=== PATIENT | female | born 1990 | race Caucasian/White ===

== ENCOUNTER 2023-09-02 06:15 | Emergency (ER) | payer OTHER, SELFPAY ==
[2023-09-02 06:20] VITALS: BP 128/83; PULSE 69; RESP 16; TEMP 36.9; O2SAT 99; BMI 21.9
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
== END 2023-09-02 07:09 | disposition home or self-care (01) ==
PROVIDERS: Emergency Provider Family Medicine; PCP Internal Medicine
DX: S61.412A Laceration without foreign body of left hand, initial encounter (principal); W26.0XXA Contact with knife, initial encounter
CPT/HCPCS: 12001; 99283; 99284

== ENCOUNTER 2023-09-06 05:35 | Emergency (ER) | payer OTHER, SELFPAY ==
[2023-09-06 05:43] VITALS: BP 116/84; PULSE 62; RESP 18; TEMP 36.7; O2SAT 99; BMI 22.2
--- NOTE | 2023-09-06 06:08 | CRLHL7_ITS ---
For Patients: As a result of the Century Cures Act, medical imaging exams and procedure reports are released immediately into your electronic medical record. You may view this report before your referring provider. If you have questions, please contact your health care provider. Indication: Vaginal bleeding and pelvic cramping in the setting of . Technique: Endovaginal pelvic ultrasound. Comparison: None Findings: No intrauterine gestational sac. No adnexal finding suspicious for ectopic . Endometrial stripe thickness is 23 mm. Incidental oval circumscribed homogeneous hypoechoic finding in the anterior aspect of the lower uterine segment consistent with a fibroid measuring 2.1 cm in greatest dimension. 2.7 cm right ovarian cyst with low-level internal echoes. Normal left ovary. Small volume anechoic recto uterine pelvic ascites. Impression: of unknown location. No sonographic findings of ectopic are demonstrated. OB consultation and follow-up serum beta HCG and pelvic ultrasound are recommended. Dictated by Paul Gasca MD @ 09/06/2023 7:12:24 AM (Electronically Signed)
--- NOTE | 2023-09-06 06:11 | ED.GENADULT ---
HPI - General Adult General Chief complaint: OB/Uterine Contractions Stated complaint: 9wks , possible miscarriage Time Seen by Provider: 09/06/23 05:46 Source: patient and family Mode of arrival: ambulatory Limitations: no limitations History of Present Illness HPI narrative: 33-year-old female presents the emergency department for evaluation of vaginal bleeding, 9 weeks . Has not yet had her 1st OB appointment, does not know her blood type. 1st . No use of anticoagulants. Does have a history of autoimmune disease with Crohn's disease, reports Remicade infusions, last 1 was last month. No fevers, no trauma or injury. Bleeding started a few hours ago. Has not fully soaked through 1 pad in the last 4 hours. Notes significant cramping. No dysuria. Nausea. Has not tried taking any medication to help with her symptoms. Past medical history notable for Crohn's disease. Only home medication is Remicade infusions. Denies prior abdominal surgeries. ROS notable for the vaginal bleeding as above, otherwise denies times 12 systems. Related Data Home Medications Medication Instructions Recorded Confirmed infliximab 100 mg intravenous 100 mg IV DIRECTED 09/06/23 09/06/23 solution (Remicade) Allergies Allergy/AdvReac Type Severity Reaction Status Date / Time No Known Drug Allergies Allergy Verified 09/06/23 05:46 [facility] Medical History History of abnormal cervical Pap smear ?Z87.42 - Personal history of other diseases of the female genital tract (ICD-10) Crohn's disease ?K50.90 - Crohn's disease, unspecified, without complications (ICD-10) Surgical History History of open reduction and internal fixation (ORIF) procedure (2005) ?Z98.890 - Other specified postprocedural states (ICD-10) History of mandibular surgery (07/18/08) ?Z98.890 - Other specified postprocedural states (ICD-10) Family History Paternal Grandfather Colon cancer Prostate cancer Maternal Grandmother Breast cancer Diabetes Paternal Grandmother Diabetes Social History Smoking Status: Never smoker Do you use any of these nicotine containing products: None How often do you have a drink containing alcohol: never AUDIT-C Alcohol total score: 0 Non-prescribed substance use: denies use Exam Const: Vital Signs, click to edit/add: Vital Signs - 24 hr 09/06/23 05:43 09/06/23 06:29 09/06/23 07:00 Temperature 98.1 F 98.1 F 98.1 F Pulse Rate [Right Pulse Oximeter] 62 Respiratory Rate 18 Blood Pressure [Ri ght Upper Arm] 116/84 Pulse Oximetry 99 Oxygen Delivery Me thod Room Air 09/06/23 07:01 Temperature 98.1 F Pulse Rate [Right Pulse Oximeter] Respiratory Rate Blood Pressure [Ri ght Upper Arm] Pulse Oximetry Oxygen Delivery Me thod Documenting provider has reviewed patient's vital signs: yes Common normals: no apparent distress General appearance: well kempt Other: Restless, writhing in pain. Gets up frequently to go to the bathroom. HENMT: Common normals: normocephalic Head and scalp: normocephalic Face and sinus: normal facial exam Eye: Common normals: conjunctivae normal General eye: normal appearance of both eyes Conjunctiva: conjunctiva(e) normal Neck & C-Spine: Common normals: full ROM and no lymphadenopathy Resp: Common normals: normal respiratory effort, no use of accessory muscles and clear to auscultation bilaterally Effort & inspection: able to speak in complete sentences Auscultation: clear to auscultation bilaterally Cardio: Common normals: regular rate, regular rhythm, S1 normal heart sound, S2 normal heart sound and no murmurs Rate: regular rate Rhythm: regular rhythm Heart sounds: S1 normal and S2 normal GI: Common normals: Normal to inspection, nondistended, normoactive bowel sounds present, soft to palpation, non-tender, no hepatosplenomegaly and no masses Palpation: soft and no hepatosplenomegaly : Other: Pelvic exam with normal appearing external genitals. Dark red blood present in vaginal vault. No obvious tissue. Speculum exam showing closed cervix with mild, light bleeding. Bimanual exam shows uterus enlarged, consistent with reported gestational age. Diffusely tender with no obvious deformities, abnormalities or focal tenderness. Extremity: Common normals: normal to inspection Neuro: Speech: speech normal Gait (neuro): normal gait Motor exam: strength 5/5 throughout Psych: Appearance: well kempt Attitude: engaged Other: A little anxious, requires redirection but no signs of impairment. Judgment and insight seem intact Skin: Common normals: no rashes or lesions noted General skin exam: no rashes or lesions noted Course Course ED Course: Threatened miscarriage. I did attempt with bedside ultrasound that she had just drained her bladder and I am unable to locate a gestational sac or the uterus at all. Small-bowel obscuring. Formal pelvic ultrasound ordered, as staff will be and about a 1/2 hour. Recommend basic blood work, ABO and Rh type, CBC, hCG quant. No signs of severe hemorrhage. Vitals stable. Will give 4 mg of IV Zofran, Tylenol. Discussed NSAID safety in , do not recommend. We can move up the oxycodone if needed but will likely cause worse nausea. Recommend starting with Tylenol and Zofran 1st. She was agreeable to this while we await findings. Reevaluation(s) Time of Reevaluation #1: 07:26 Reevaluation #1: Pain markedly improved with Zofran and Tylenol. Was given Toradol once I had reviewed the ultrasound finding showing no evidence of intrauterine . This is also helping. We discussed the findings, no evidence of intrauterine , suspect spontaneous miscarriage, seems uncomplicated. No evidence of ectopic . HCG quant is around 7000. Discussed how this is not diagnostic but will rather be used for follow-up purposes. Alarm symptoms reviewed, written instructions provided, all questions answered. Verbalizes understanding and agreement. Work note given for today. Vital Signs Vital signs: Initial Vital Signs Temperature 98.1 F 09/06/23 05:43 Temperature Source Temporal Artery Scan 09/06/23 05:43 Pulse Rate 62 09/06/23 05:43 Respiratory Rate 18 09/06/23 05:43 Blood Pressure 116/84 09/06/23 05:43 Blood Pressure Mean 94 09/06/23 05:43 Blood Pressure Position Sitting 09/06/23 05:43 Pulse Oximetry 99 09/06/23 05:43 Oxygen Delivery Method Room Air 09/06/23 05:43 Vital Signs Temperature 98.1 F 09/06/23 05:43 Pulse Rate 62 09/06/23 05:43 Respiratory Rate 18 09/06/23 05:43 Blood Pressure 116/84 09/06/23 05:43 Pulse Oximetry 99 09/06/23 05:43 Oxygen Delivery Method Room Air 09/06/23 05:43 Temperature 98.1 F 09/06/23 07:01 Pulse Rate 62 09/06/23 05:43 Respiratory Rate 18 09/06/23 05:43 Blood Pressure 116/84 09/06/23 05:43 Pulse Oximetry 99 09/06/23 05:43 Oxygen Delivery Method Room Air 09/06/23 05:43 Medical Decision Making Lab Data Lab results reviewed: Yes I reviewed the patient's lab results Lab results narrative: Mildly elevated white count, A positive blood type, quant of 7000. Labs: Lab Results 09/06/23 Range/Units 06:15 WBC 13.32 H (4.50-11.00) K/uL RBC 4.93 (4.00-5.20) m/uL Hgb 13.4 (12.0-16.0) gm/dL Hct 41.7 (33.0-51.0) % MCV 85 (80-100) fL MCH 27 (26-34) pg MCHC 32 (32-36) gm/dL RDW Coeff of Tabitha 13.4 (11.5-15.5) % Plt Count 320 (140-440) K/uL Neut % (Auto) 71.5 (42.0-72.0) % Lymph % (Auto) 22.4 (20-44) % [place] % (Auto) 4.3 (0.0-11.0) % Eos % (Auto) 0.8 (0.0-7.0) % Baso % (Auto) 0.2 (0.0-3.0) % Neut # (Auto) 9.50 H (1.7-7.0) K/uL Lymph # (Auto) 3.00 H (0.90-2.90) K/uL [place] # (Auto) 0.60 (0.00-0.90) K/UL Eos # (Auto) 0.10 (0.00-0.50) K/uL Baso # (Auto) 0.00 (0.00-0.30) K/uL Abs Immat Gran (auto) 0.10 (0.00-0.30) K/uL Imm/Tot Granulo (auto) 0.8 % HCG, Quant 6994.00 mIU/mL Blood Type A Positive Imaging Data Pelvic ultrasound: Attestation: I have reviewed the pertinent imaging results. My impression: No intrauterine , small fibroid present Radiologist's impression: Impression: of unknown location. No sonographic findings of ectopic are demonstrated. OB consultation and follow-up serum beta HCG and pelvic ultrasound are recommended. Discharge Plan Discharge Clinical Impression: Spontaneous miscarriage Patient Disposition: Home w/ Parent or Adult Condition: Stable Instructions: Miscarriage (ED) Additional Instructions: As we discussed, you are unfortunately experiencing a miscarriage. Thankfully, things do seem to be progressing naturally and without complication. Your blood type is A positive, this means that you do not need any special injections or care related to your blood type in this . Your hormone level is around 7000. This will need to be rechecked in the OB office in a few days to ensure that things are progressing as expected. Please call the office to update them on how things are going today and double check on when they would want you to be seen for your next appointment, it will likely be Saturday or Saturday. I have given her prescriptions for Zofran, also known as ondansetron which is an anti nausea medication. He may take this 1 tablet up to 3 times daily for nausea and vomiting. I have also given her prescription for Toradol which is an anti-inflammatory medicine similar to ibuprofen. You may take this up to 4 times daily, every 6 hours for pain. You may also use Tylenol 1000 mg every 6 hours if the Toradol is not strong enough. I do not recommend also using ibuprofen or Aleve while you are taking the Toradol. For most people the bleeding is strong umberto for 24 hours and then starts to let up, more similar to normal menstrual cycle. As we discussed, I would like for you to come back to the emergency department if you start having heavy bleeding, meaning soaking through more than a pad per hour, have high fevers over 100.4 or severe worsening of symptoms. I would like for you to be home from work today and have given you a note reflecting this. Activity Level: Activity as Tolerated Discharge Diet: Regular Prescriptions: No Action infliximab [Remicade] 100 mg recon soln 100 mg IV DIRECTED Rx Instructions: 10 mg/kg every 7-8 weeks Follow Up/Referrals: Kyung Celaya MD [Primary Care Provider] - Stand Alone Forms: [employer] Info Instructions
[2023-09-06] MEDS: ONDANSETRON 2 MG/ML inj 4 MG IVP (06:15)
[2023-09-06 06:26] LABS: Basophils Percent Auto 0.2 % (0.0-3.0); Eosinophils Percent Auto 0.8 % (0.0-7.0); Hematocrit 41.7 % (33.0-51.0); Hemoglobin* 13.4 gm/dL (12.0-16.0); Immature Granulocytes Pct Auto 0.8 %; Lymphocytes Percent Auto 22.4 % (20-44); Mean Corpuscular HGB Conc 32 gm/dL (32-36); Mean Corpuscular Hemoglobin 27 pg (26-34); Mean Corpuscular Volume 85 fL (80-100); Monocytes Percent Auto 4.3 % (0.0-11.0); Neutrophils Percent Auto 71.5 % (42.0-72.0); Platelet Count* 320 K/uL (140-440); RDW Coefficient of Variation % 13.4 % (11.5-15.5); Red Blood Count 4.93 m/uL (4.00-5.20); White Blood Count* 13.32 K/uL (4.50-11.00)
[2023-09-06 06:29] VITALS: TEMP 36.7
[2023-09-06] MEDS: ACETAMINOPHEN 500 MG TABLET 1000 MG PO (06:29)
[2023-09-06 06:31] LABS: Slide Review Reflex No
[2023-09-06 07:00] VITALS: TEMP 36.7
[2023-09-06] MEDS: KETOROLAC 15 MG/ML inj IVP (07:00)
[2023-09-06 07:01] VITALS: TEMP 36.7
== END 2023-09-06 07:38 | disposition home or self-care (01) ==
PROVIDERS: Emergency Provider Family Medicine; PCP Internal Medicine
DX: O03.9 Complete or unspecified spontaneous abortion without complication (principal)
CPT/HCPCS: 36415; 76817; 84702; 85025; 86900; 86901; 96374; 96375; 99284; A9270; J1885; J2405

== ENCOUNTER 2023-09-10 11:14 | Outpatient (CLI) | payer OTHER, SELFPAY | END 2023-09-10 11:15 | disposition home or self-care (01) | LOC: NFLDREF 11:15 | PROVIDERS: PCP Internal Medicine; Visit Provider Registered Nurse | DX: O03.9 Complete or unspecified spontaneous abortion without complication (principal) | CPT/HCPCS: 84702 ==

== ENCOUNTER 2023-09-17 15:39 | Outpatient (CLI) | payer OTHER, SELFPAY | END 2023-09-17 15:40 | disposition home or self-care (01) | LOC: NFLDREF 09-19 21:06 | PROVIDERS: PCP Internal Medicine; Referring Provider Internal Medicine; Visit Provider Registered Nurse | DX: O03.9 Complete or unspecified spontaneous abortion without complication (principal) | CPT/HCPCS: 84702 ==

== ENCOUNTER 2023-10-07 10:31 | Outpatient (CLI) | payer OTHER, SELFPAY | END 2023-10-07 10:32 | disposition home or self-care (01) | LOC: NFLDREF 10-10 21:51 | PROVIDERS: PCP Internal Medicine; Referring Provider Internal Medicine; Visit Provider Registered Nurse | DX: O03.9 Complete or unspecified spontaneous abortion without complication (principal) | CPT/HCPCS: 84702 ==

== ENCOUNTER 2023-12-10 14:58 | Outpatient (CLI) | payer BC, SELFPAY ==
--- NOTE | 2023-12-10 15:00 | CRLHL7_ITS ---
For Patients: As a result of the Century Cures Act, medical imaging exams and procedure reports are released immediately into your electronic medical record. You may view this report before your referring provider. If you have questions, please contact your health care provider. INDICATION: Dating and viability TECHNIQUE: Transvaginal scanning was performed to optimally evaluate the IUP and adnexa. Ovarian blood flow was evaluated with color-flow and pulsed Doppler. COMPARISON: None. FINDINGS: There is a living IUP with gestational age of 8 weeks 5 days by LMP and 8 weeks 4 days by today`s crown-rump length. EDC based on today`s crown-rump length is 07/17/2024. The embryonic heart rate is measured at 167 beats per minute. The placenta is not yet formed. No subchorionic hemorrhage is evident. An intramural fibroid measuring 2.5 x 2.3 x 2.1 cm demonstrated in the inferior anterior uterine body. A corpus luteum is noted on the right. The right ovary measures 3.8 x 2.5 x 2.3 cm and the left 3.6 x 2.1 x 1.6 cm. Ovarian blood flow is demonstrated with color-flow and pulsed Doppler. No adnexal mass or free fluid is apparent. IMPRESSION: 1. Living IUP with gestational age of 8 weeks 5 days by LMP and 8 weeks 4 days by today`s crown-rump length. EDC based on today`s crown-rump length is 07/17/2024. 2. No complication evident. 3. Intramural fibroid measuring 2.5 x 2.3 x 2.1 cm in the inferior anterior uterine body. Dictated by Eric Zapien MD @ 12/12/2023 1:32:30 PM (Electronically Signed)
--- OUTSIDE RECORDS SUMMARY | 2023-12-10 15:15 | XMS_ITS | Clinical Summary ---
Author Name Unknown Organization [facility] Address [address] [place] [address] Care Team Providers Care Physics Tutor Name Role Phone Unavailable Primary Care Provider Unavailabl e Source Comments Patient records contain information from all sites at [facility]. For routine questions regarding patient records, call [phone] during business hours, M-F 8:00 AM - 5:00 PM Central Time. Record requests for emergency care only can be directed to [phone] at any time.[facility] Allergies Active Allergy Reactions Criticality Noted Date Comments Animal Dander Hives (Reselect Reaction),Itching,Wheezing (Reselect Reaction) High 01/19/2022 Medications Medication Sig Dispensed Refills Start Date End Date Status inFLIXimab (REMICADE) 10 mg/mL injection Infuse into a venous catheter. 5 mg/kg 0 03/14/2017 Active acetaminophen (for_TYLENOL) 500 mg tablet Take 500 mg by mouth every 6 (six) hours as needed for pain. 0 Active diphenhydrAMINE (BENADRYL) 25 mg capsule Take 1 capsule by mouth as directed. premedication for Remicade 0 03/18/2014 Active methylprednisolone sod succ/PF (METHYLPREDNISOLONE SOD SUC,PF, IV) Infuse 40 mg into a venous catheter as directed. premedication for Remicade 0 11/09/2015 Active methylPREDNISolone sodium succinate (SOLU-Medrol) 40 mg injection X 0 Active NIFEdipine 0.1% in plasticized PF base Apply topically 2 (two) times a day. Apply to anus 30 g 0 01/19/2022 Active phenazopyridine (PYRIDIUM) 200 mg tablet Take 1 tablet (200 mg total) by mouth 3 (three) times a day as needed for painful urination for up to 6 doses. 6 tablet 0 08/08/2022 Active fluticasone propionate (FLONASE) 50 mcg/actuation nasal spray SHAKE LIQUID AND USE 2 SPRAYS IN EACH NOSTRIL DAILY 48 g 0 11/01/2022 Active [id number] rip-SfYe-ZPf-asb-C (MOVIPREP) 100-7.5-2.691 gram per packetIndications:C olitis Crohn's (HCC),Crohn's Disease (HCC),Diarrhea Drink 1st portion of prep at 6 PM the evening before. 2nd portion must be started 3 hours before and finished 2 hours prior to report time 1 kit 0 07/19/2023 Active Active Problems Problem Noted Date Diagnosed Date Immunosuppressed State 05/04/2020 Colitis Crohn's 11/02/2015 Reflux Esophageal 11/21/2011 Resolved Problems Problem Noted Date Diagnosed Date Resolved Date Crohn's Disease 04/14/2012 05/04/2020 Overview: Crohn's disease Encounters Date Type Department Care Team Description 11/29/2023 8:15 AM COMMERCIAL BAKER HELPER Comprehensive Visit Department of Dermatology in [place], [place] [address] [place] [address] Iqra Rao M.D. McEvoy, Marian T, M.D. Screening Examination Skin Cancer (Primary Dx); Immunodeficiency (HCC); Dermatoheliosis; Keratosis Seborrheic; Angioma Leonardo; Nevi Multiple 11/28/2023 11:59 PM COMMERCIAL BAKER HELPER Hospital Encounter Division of Gastroenterology in [place], [place] [address] [place] [address] Iqar Rao M.D. Canceled (Clinic: Request) Discharge Disposition: Home or Self Care 09/09/2023 Clinical Communication Division of Gastroenterology in [place], [place] [address] [place] [address] Iqra Rao M.D. from Last 3 Months Immunizations Name Administration Dates Next Due DTaP, Unspecified 07/29/1997, 4,02/08/1992,1991,1991 H1N1 All Forms 11/14/2009 HPV, Unspecified 08/10/2013,09/25/2012, 0 HepA Adult 12/30/2015 HepB, Unspecified 02/28/2005,07/26/2004,07/29/19 97 Hib (HbOC) (discontinued) 01/13/1993,08/1992,1991,1990 IPV 07/29/1997, 4,1991,1990 Influenza Split 09/15/2012,12/28/2011 Influenza, Unspecified 09/25/2012 MCV4 (Menactra) 06/18/2006 MCV4, Unspecified 06/18/2006 MMR 08/01/2004,01/13/1993 PPSV23 12/28/2011 Td Preservative Free (TENIVA C, DECAVAC) 08/01/2004 Tdap 12/30/2015 TyVi (inj) 12/30/2015 LUCIA 06/26/2010,10/02/1992 influenza vaccine quad (FLUZONE/FLUARIX) (6 months and older)(PF) 12/30/2015 Family History Medical History Relation Name Comments Healthy adult Father Healthy adult Mother Anxiety disorder Sister Healthy adult Sister Relation Name Status Comments Father Mother Sister Social History Tobacco Use Types Packs/Day Years Used Date Smoking Tobacco: Never Smokeless Tobacco: Never Alcohol Use Standard Drinks/Week Comments Yes 0 (1 standard drink = 0.6 oz pur e alcohol) 2 drinks per week Social Connection and Isolat ion Panel [NHANES] Answer Date Recorded In a typical week, how many times do you talk on the phone with family, friends, or neighbors? More than three times a week 12/27/2020 How often do you get togethe r with friends or relatives? Once a week 12/27/2020 How often do you attend chur or advent services? 1 to 4 times per year 12/27/2020 Do you belong to any clubs o r organizations such as jewish groups, unions, fraternal or athletic groups, or school groups? No 12/27/2020 How often do you attend meet ings of the clubs or organizations you belong to? Never 12/27/2020 Are you , , di vorced, , never , or living with a partner? Never 12/27/2020 AUDIT-C Answer Date Recorded Q1: How often do you have a drink containing alc ohol? 2-3 times a week 12/27/2020 Q2: How many drinks containi ng alcohol do you have on a typical day when you are drinking? 1 or 2 12/27/2020 Q3: How often do you have si x or more drinks on one occasion? Less than monthly 12/27/2020 Overall Financial Resource Strain (CARDIA) Answe r Date Recorded How hard is it for you to pa y for the very basics like food, housing, medical care, and heating? Not very hard 12/27/2020 [facility] of Occupat ional Health - Occupational Stress Questionnaire Answer Date Recorded Do you feel stress - tense, restless, nervous, or anxious, or unable to sleep at night because your mind is troubled all the time - these days? Only a little 12/27/2020 Exercise Vital Sign Answer Date Recorde d On average, how many days pe r week do you engage in moderate to strenuous exercise (like a brisk walk)? 4 days 12/27/2020 On average, how many minutes do you engage in exercise at this level? 60 min 12/27/2020 Hunger Vital Sign Answer Date Recorded Within the past 12 months, y ou worried that your food would run out before you got the money to buy more. Never true 12/27/19 21 Within the past 12 months, t he food you bought just didn't last and you didn't have money to get more. Never true 12/27/2020 PRAPARE - Transportation Answer Date Re corded In the past 12 months, has l ack of transportation kept you from medical appointments or from getting medications? No 12/03 In the past 12 months, has l ack of transportation kept you from meetings, work, or from getting things needed for daily living? No 12/27/2020 Nutrition Answer Date Recorded Nutrition: EVOO Fat Source No 12/27 On average, how many serving s of fruits and vegetables do you eat per day (serving size is equal to 1 cup or approximately the size of a tennis ball)? 2-3 12/27/2020 Dental Answer Date Recorded Dental: Regular Dentist Yes 12/02/19 Education Answer Date Recorded What is the highest level of school you have completed or the highest degree you have received? Bachelor's degree (e.g., BA, AB, BS) 12/27/2020 Sex and Gender Information Value Date Recorded Sex Assigned at Female 02/26/2019 2:40 PM CDT Gender Identity Female 02/26/2019 2:40 PM CDT Sexual Orientation Straight 02/26/2019 2: 40 PM CDT Last Filed Vital Signs Vital Sign Reading Time Taken Comments Blood Pressure 113/84 07/19/2023 8:08 AM CDT Pulse 60 07/19/2023 8:08 AM CDT Temperature 36 ??C (96.8 ??F) 02/21/2021 2:47 PM CDT Respiratory Rate 11 02/21/2021 3:15 PM CDT Oxygen Saturation 100% 02/21/2021 3:15 PM CDT Inhaled Oxygen Concentration - - Weight 64 kg (141 lb 1.5 oz) 07/19/2023 8:08 AM CDT Height 170.2 cm (5' 7) 07/19/2023 8:08 AM CDT Body Mass Index 22.1 07/19/2023 8:08 AM CDT Plan of Treatment Health Maintenance Due Date Last Done Comments HIV Screening 1991 Hepatitis C Screening 1991 Zoster Vaccines (1 of 2) 08/21/2010 Pneumococcal vaccine (0-64 y ears) (2 of 2 - PCV) 12/28/2012 12/28/2011 Hepatitis A Vaccines (2 of 2 - Risk 2-dose series) 06/29/2016 12/30/2015 COVID-19 Vaccine (2 - Modern a risk series) 09/08/2021 08/11/2021 Cervical Cancer Screening 08/04/20232019, 09/25/2012, 12/03/2011 (Performed elsewhere) Influenza Vaccine (#1) 2023 , 12/30/2015, 09/25/2012, Additional history exists Depression Screening (Annual PHQ-2) 12/02/2023 DTaP,Tdap,and Td Vaccines (7 - Td or Tdap) 12/30/2025 12/30/2015, 08/01/2004, 07/29/1997, Additional history exists Hepatitis B Vaccines Completed 02/28/2005, 02/28/2005, 07/26/2004, Additional history exists Varicella Vaccines Completed 06/26/2010, 10/02/1992 HPV Vaccines Completed 08/10/2013, 08/2013, 09/25/2012, Additional history exists Colonoscopy Discontinued 02/21/2021, 01/31, 12/19/2015, Additional history exists Colorectal Cancer Surveillance Discontinued CT Colonography Discontinued Cologuard Discontinued
--- OUTSIDE RECORDS SUMMARY | 2023-12-10 15:15 | XMS_ITS | Encounter Summary ---
Author Name Unknown Organization [facility] Address [address] [place] [address] Care Team Providers Care Environmental Educator Name Role Phone Unavailable Primary Care Provider Unavailabl e Encounter Details Date Type Department Care Team (Latest Contact Info) Description 09/09/2023 Clinical Communication Division of Gastroenterology in [place], [place] [address] [place] [address] Iqra Rao M.D. [address] [place] [phone] Social History Tobacco Use Types Packs/Day Years [...] 12/27/2020 How often do you attend chur ch or latter-day services? 1 to 4 times per year 12/27/2020 Do you belong to any clubs o r organizations such as hinduism groups, unions, fraternal or athletic groups, or [...] care, and heating? Not very hard 12/27/2020 [facility] of Occupat ional Health - Occupational Stress [...] Orientation Straight 02/26/2019 2: 40 PM CDT documented as of this encounter Plan of Treatment Not on file documented as of this encounter Visit Diagnoses Not on filedocumented in this encounter
--- OUTSIDE RECORDS SUMMARY | 2023-12-10 15:15 | XMS_ITS | Clinical Summary ---
Author Name Unknown Organization [facility] Address [place], [place] [address] Care Team Providers Care Assistant Laboratory Director Name Role Phone Pcp, No Primary Care Provider Unavailabl e Allergies No known active allergies Medications Medication Sig Dispensed Refills Start Date End Date Status inFLIXimab (REMICADE) 100 mg injection Infusion every 8 weeks 0 10/25/2014 Active Social History Tobacco Use Types Packs/Day Years Used Date Smoking Tobacco: Never Smokeless Tobacco: Never Alcohol Use Standard Drinks/Week Comments Yes 0 (1 standard drink = 0.6 oz pur e alcohol) Sex and Gender Information Value Date Recorded Sex Assigned at Not on file Gender Identity Not on file Sexual Orientation Not on file Obstetrics History Last Filed Vital Signs Vital Sign Reading Time Taken Comments Blood Pressure 118/82 10/25/2014 12:05 PM CREDIT CONSULTANT Pulse 88 10/25/2014 12:05 PM CREDIT CONSULTANT Temperature 37.3 ??C (99.1 ??F) 10/25/2014 12:[address] Respiratory Rate - - Oxygen Saturation - - Inhaled Oxygen Concentration - - Weight 70.8 kg (156 lb) 10/25/2014 12:05 PM CREDIT CONSULTANT Height - - Body Mass Index - - Plan of Treatment Health Maintenance Due Date Last Done Comments COVID-19 vaccine series (#1) 01/18/1992 Tdap 2002 Depression screening for age 12+ 2003 HIV for age 15-65 2006 BMI (ht and wt on same day) for age 18+ 2009 Hepatitis C screening for ag e 18-79 2009 Tetanus booster 2011 Influenza for age 9-49 08/02/2023 Pap test for age 21-65 08/04/2023 0, 08/04/2020 Pneumococcal series for age 6-64 Aged Out No longer eligible b ased on patient's age to complete this topic Care Teams Assistant Laboratory Director Relationship Specialty Start Date End Date Pcp, No . PCP - General 10/25/14
--- OUTSIDE RECORDS SUMMARY | 2023-12-10 15:15 | XMS_ITS | Encounter Summary ---
Author Name Unknown Organization [facility] Address [address] [place] [address] Care Team Providers Care Cleaning And Washing Equipment Operator Name Role Phone Unavailable Primary Care Provider Unavailabl e Reason for Visit * Outpatient (Routine) - Closed Specialty Diagnoses / Procedures Referred By Hillary hdz Referred To Contact Dermatology Diagnoses Colitis Crohn's (HCC) Crohn's Disease (HCC) Iqra Rao M.D. [address] [place] [address] [facility] Referral ID Status Reason Start Date Expiration Date Visits Re quested Visits Authorized [id number] Closed 07/19/2023 2024 1 1 Encounter Details Date Type Department Care Team (Latest Contact Info) Description 11/29/2023 8:15 AM HIM MANAGER Comprehensive Visit Department of Dermatology in [place], [place] [address] [place] [phone] Iqra Rao M.D. [address] [place] [phone] Nataliya Castelan M.D. [address] [place] [phone] Screening Examination Skin Cancer (Primary Dx); Immunodeficiency (HCC); Dermatoheliosis; Keratosis Seborrheic; Angioma Leonardo; Nevi Multiple Social History Tobacco Use Types Packs/Day Years [...] often do you attend chur ch or hoahaoism services? 1 to 4 times per year 12/27/2020 Do you belong to any clubs o r organizations such as zoroastrian groups, unions, fraternal or athletic groups, or [...] care, and heating? Not very hard 12/27/2020 [facility] of Occupat ional Health - Occupational Stress [...] PM CDT documented as of this encounter Consult Notes * Nataliya Castelan M.D. - 11/29/2023 8:15 AM CST REFERRED BY Iqra Gutierrez M.D. CHIEF COMPLAINT/REASON FOR VISIT Immunosuppressed state, infliximab for Crohn's disease. HISTORY OF PRESENT ILLNESS Ms. Caren Wheeler is a pleasant 33 y.o. female who presents today for a full skin cancer screening examination. The patient has a history of Crohn's disease and is on chronic immunosuppressivetherapy with infliximab. She endorses no personal or family history of skin cancer. Ms. Wheeler was last seen in [facility] on 02/21/2021 with Sheryl Rodriguez APRN. A full skin exam was completed and no clinical evidence for skin cancer was found. All skin findings were benign in nature and required no treatment at that visit. Today, she reports she is doing well from a Crohn's standpoint; she was diagnosed 12 years ago. 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 She grew up in [place], [place]. She states she only has one concern, a mole on her left ear that she has noticed for the last 6years, it seems to be getting bigger. Allergies Allergen Reactions Animal Dander Hives (Reselect Reaction), Itching and Wheezing (Reselect Reaction) PAST DERMATOLOGIC HISTORY Negative for skin cancer FAMILY DERMATOLOGIC HISTORY Negative for skin cancer PHYSICAL EXAM General: Awake, alert, in no acute distress, and with appropriate affect. Eyes: No scleral injection or icterus. No eyelid abnormalities. Lymph: No lower extremity edema. Skin: I have examined the scalp, face, neck, chest, abdomen, back, buttocks, bilateral upper extremities, and bilateral lower extremities. [place] skin type III. Scattered light brown to dark brown, symmetric, uniform macules and thin papules on the trunk, and extremities with reassuring features under dermoscopy. Her spot of concern on her left ear is a benign nevus. IMPRESSION/REPORT/PLAN #1 Skin cancer screening examination #2 Immunosuppressed state, infliximab for Crohn's disease #3 Benign-appearing nevi The ABCDE criteria for melanoma was reviewed with the patient. I recommend continued sun protection, self-skin examinations, and observation. Should any of the patient's nevi change in size, color, texture, or shape or develop symptoms such as itching or bleeding, I recommend an immediate return visit for reassessment. Continue current sun protection practices PATIENT EDUCATION Ready to learn. No apparent learning barriers were identified. Learning preferences include listening. Explained diagnosis and treatment plan; patient/guardian of patient expressed understanding of the content. This document serves as a record of services personally performed by Nataliya Castelan M.D. It was created on their behalf by DULCE Tony, a trained medical communication specialist. The creation of this record is based on the scribe remotely listening to the visit and the provider's statements to them. This document has been checked and approved by the attending provider. Scribed for Nataliya Castelan M.D. by DULCE Tony, on 11/29/2023, 7:29 AM HIM MANAGER. MANAGER documented in this encounter Plan of Treatment Not on file documented as of this encounter Visit Diagnoses Diagnosis Screening Examination Skin Cancer- Primary Immunodeficiency (HCC) Dermatoheliosis Keratosis Seborrheic Angioma Leonardo Nevi Multiple documented in this encounter
--- OUTSIDE RECORDS SUMMARY | 2023-12-10 15:15 | XMS_ITS | Clinical Summary ---
Author Name Unknown Organization [facility] Address [address] [address] Phone Care Team Providers Care Laborer [place] Name Role Phone Unavailable Primary Care Provider Unavailabl e Allergies No known active allergies Medications Medication Sig Dispensed Refills Start Date End Date Status eojugdik-dzbslwkjf-nmif meth (Maxitrol) 3.5-80708-0.[address] 1 Drop into the right eye four times a day. 5 mL 0 06/09/2022 Active Social History Tobacco Use Types Packs/Day Years Used Date Smoking Tobacco: Never Smokeless Tobacco: Never PHQ-2 Answer Date Recorded PHQ-2 Total 0 06/09/2022 Sex and Gender Information Value Date Recorded Sex Assigned at Not on file Gender Identity Not on file Sexual Orientation Not on file Job Start Date Occupation Industry Not on file Not on file Not on file Obstetrics History Last Filed Vital Signs Vital Sign Reading Time Taken Comments Blood Pressure 132/87 06/09/2022 11:24 AM CDT Pulse 57 06/09/2022 11:24 AM CDT Temperature 36.3 ??C (97.4 ??F) 06/09/2022 1 1:24 AM CDT Respiratory Rate 18 06/09/2022 11:2 4 AM CDT Oxygen Saturation 98% 06/09/2022 11: 24 AM CDT Inhaled Oxygen Concentration - - Weight 64.4 kg (141 lb 15.6 oz) 022 11:24 AM CDT Height - - Body Mass Index - - Plan of Treatment Health Maintenance Due Date Last Done Comments Cervical Cancer Screening 1991 Hepatitis B Vaccine (Standin g Order) (1 of 3 - 3-dose series) 1991 Last pap w/ HPV Testing 1991 Last pap w/o HPV Testing 1991 COVID-19 Vaccine (#1) 01/18/1992 PERTUSSIS (Standing Order) 2010 TETANUS (Standing Order) 2010 Influenza Vaccine Seasonal (Standing Order) (#1) 2023 HPV Vaccine (Standing Order) Aged Out No longer eligible based on patient's age to complete this topic Pneumococcal/PCV20 Vaccine: Pediatrics (2-5 yrs) and At-Risk Patients (6-64 yrs) (Standing Order) Aged Out No longer eligible b ased on patient's age to complete this topic
--- OUTSIDE RECORDS SUMMARY | 2023-12-10 15:15 | XMS_ITS ---
Author Name Unknown Organization [facility] Address [address] [place] [address] Care Team Providers Care Strategic Alliances Manager Name Role Phone Unavailable Unavailable Unavailable Surgery Details Not on file Complications Check Surgery Details section. Procedure Estimated Blood Loss Check Surgery Details section. Procedure Findings Check Surgery Details section. Procedure Specimens Taken Check Surgery Details section.
--- OUTSIDE RECORDS SUMMARY | 2023-12-10 15:15 | XMS_ITS | Referral Summary ---
Author Name Unknown Organization [facility] Address [address] [place] [address] Care Team Providers Care Sign Builder Name Role Phone Unavailable Primary Care Provider Unavailabl e Source Comments Patient records contain information from all sites at [facility]. For routine questions regarding patient records, call [phone] during business hours, M-F 8:00 AM - 5:00 PM Central Time. Record requests for emergency care only can be directed to [phone] at any time.[facility] Encounters Date Type Department Care Team Description 11/29/2023 8:15 AM HUNTING AND FISHING GUIDE Comprehensive Visit Department of Dermatology in [place], [place] [address] [place] [address] Iqra Rao M.D. McEvoy, Marian T, M.D. Screening Examination Skin Cancer (Primary Dx); Immunodeficiency (HCC); Dermatoheliosis; Keratosis Seborrheic; Angioma Leonardo; Nevi Multiple 11/28/2023 11:59 PM HUNTING AND FISHING GUIDE Hospital Encounter Division of Gastroenterology in [place], [place] [address] [place] [address] Iqra Rao M.D. Canceled (Clinic: Request) Discharge Disposition: Home or Self Care 09/09/2023 Clinical Communication Division of Gastroenterology in [place], [place] [address] [place] [address] Iqra Rao M.D. from Last 3 Months Allergies Active Allergy Reactions Criticality Noted Date [...] NOSTRIL DAILY 48 g 0 11/01/2022 Active [id number] fnk-DxUc-ORx-asb-C (MOVIPREP) 100-7.5-2.691 gram per packetIndications:C olitis Crohn's [...] Crohn's Disease 04/14/2012 05/04/2020 Overview: Crohn's disease Immunizations Name Administration Dates Next Due DTaP, [...] quad (FLUZONE/FLUARIX) (6 months and older)(PF) 12/30/2015 Social History Tobacco Use Types Packs/Day Years [...] often do you attend chur ch or restorationism services? 1 to 4 times per year 12/27/2020 Do you belong to any clubs o r organizations such as jehovah's witness groups, unions, fraternal or athletic groups, or [...] care, and heating? Not very hard 12/27/2020 [facility] of Occupat ional Health - Occupational Stress [...] 07/19/2023 8:08 AM CDT Plan of Treatment Not on file
--- OUTSIDE RECORDS SUMMARY | 2023-12-10 15:15 | XMS_ITS | Encounter Summary ---
Author Name Unknown Organization [facility] Address [address] [place] [address] Care Team Providers Care Geomorphology Teacher Name Role Phone Unavailable Primary Care Provider Unavailabl e Reason for Visit * Outpatient (Routine) - Authorized Specialty Diagnoses / Procedures Referred By Hillary hdz Referred To Contact Diagnoses Colitis Crohn's (HCC) Crohn's Disease (HCC) Diarrhea Procedures Colonoscopy Iqra Rao M.D. [address] [place] [phone] [facility] Referral ID Status Reason Start Date Expiration Date V isits Requested Visits Authorized [id number] Authorized 07/19/2023 2024 1 1 Encounter Details Date Type Department Care Team (Latest Contact Info) Description 11/28/2023 11:59 PM ENVIRONMENTAL COMPLIANCE MANAGER Hospital Encounter Division of Gastroenterology in [place], [place] [address] [place] [phone] Iqra Rao M.D. [address] [place] [phone] Canceled (Clinic: Request) Discharge Disposition: Home or Self Care Social History Tobacco Use Types Packs/Day Years [...] often do you attend chur ch or religion services? 1 to 4 times per year 12/27/2020 Do you belong to any clubs o r organizations such as quaker groups, unions, fraternal or athletic groups, or [...] care, and heating? Not very hard 12/27/2020 [facility] Answer Date Recorded [...] PM CDT documented as of this encounter Medications at Time of Discharge Medication Sig Dispensed Refills Start Date End Date acetaminophen (for_TYLENOL) 500 mg tablet Take 500 mg by mouth every 6 (six) hours as needed for pain. 0 diphenhydrAMINE (BENADRYL) 25 mg capsule Take 1 capsule by mouth as directed. premedication for Remicade 0 03/18/2014 fluticasone propionate (FLONASE) 50 mcg/actuation nasal spray SHAKE LIQUID AND USE 2 SPRAYS IN EACH NOSTRIL DAILY 48 g 0 11/01/2022 inFLIXimab (REMICADE) 10 mg/mL injection Infuse into a venous catheter. 5 mg/kg 0 03/14/2017 methylprednisolone sod succ/PF (METHYLPREDNISOLONE SOD SUC,PF, IV) Infuse 40 mg into a venous catheter as directed. premedication for Remicade 0 11/09/2015 methylPREDNISolone sodium succinate (SOLU-Medrol) 40 mg injection X 0 NIFEdipine 0.1% in plasticized PF base Apply topically 2 (two) times a day. Apply to anus 30 g 0 01/19/2022 [id number] (MOVIPREP) 100-7.5-2.691 gram per packetIndications:Coli tis Crohn's (HCC),Crohn's Disease (HCC),Diarrhea Drink 1st portion of prep at 6 PM the evening before. 2nd portion must be started 3 hours before and finished 2 hours prior to report time 1 kit 0 07/19/2023 phenazopyridine (PYRIDIUM) 200 mg tablet Take 1 tablet (200 mg total) by mouth 3 (three) times a day as needed for painful urination for up to 6 doses. 6 tablet 0 08/08/2022 documented as of this encounter Plan of Treatment Not on file documented as of this encounter Visit Diagnoses Not on filedocumented in this encounter
--- OUTSIDE RECORDS SUMMARY | 2023-12-10 15:16 | XMS_ITS | Encounter Summary ---
Author Name Unknown Organization [facility] Address [address] [place] [address] Care Team Providers Care Ruby On Rails Engineer Name Role Phone Unavailable Primary Care Provider Unavailabl e Encounter Details Date Type Department Care Team (Latest Contact Info) Description 07/19/2023 8:49 AM CDT - 07/19/2023 11:59 PM CDT Hospital Encounter Department of Laboratory Medicine and Pathology, [place], [place] [address] [place] [address] Iqra Rao M.D. [address] [place] [phone] Colitis Crohn's (HCC); Crohn's Disease (HCC); Diarrhea Discharge Disposition: Home or Self Care Social [...] week 12/27/2020 How often do you attend [facility] or roman catholic services? 1 to 4 times per year 12/27/2020 Do you belong to any clubs o r organizations such as mandaen groups, unions, fraternal or athletic groups, or [...] care, and heating? Not very hard 12/27/2020 [facility] - Occupational Stress [...] Apply to anus 30 g 0 01/19/2022 [id number] (MOVIPREP) 100-7.5-2.691 gram per packetIndications:Coli tis Crohn's [...] on file documented as of this encounter Procedures Procedure Name Priority Date/Time Associated Diagnosis Comments IRON AND TOT IRON-BINDING CAPACITY, S/P Routine 07/19/2023 8:58 AM CDT Colitis Crohn's (HCC) Crohn's Disease (HCC) Diarrhea 25-HYDROXYVITAMIN D2 AND D3, S Routine 07/19/2023 8:58 AM CDT Colitis Crohn's (HCC) Crohn's Disease (HCC) Diarrhea CBC WITH DIFFERENTIAL, B Routine 07/19/2023 8:58 AM CDT Colitis Crohn's (HCC) Crohn's Disease (HCC) Diarrhea C-REACTIVE PROTEIN (CRP), S/P Routine 07/19/2023 8:58 AM CDT Colitis Crohn's (HCC) Crohn's Disease (HCC) Diarrhea FERRITIN, S Routine 07/19/2023 8:58 AM CDT Colitis Crohn's (HCC) Crohn's Disease (HCC) Diarrhea VITAMIN B12 ASSAY, S Routine 07/19/2023 8:58 AM CDT Colitis Crohn's (HCC) Crohn's Disease (HCC) Diarrhea COMPREHENSIVE METABOLIC PANEL, S/P Routine 07/19/2023 8:58 AM CDT Colitis Crohn's (HCC) Crohn's Disease (HCC) Diarrhea documented in this encounter Results * Comprehensive Metabolic Panel (07/19/2023 8:58 AM CDT) Potassium, S 4.9 3.6 - 5.2 mmol/L 07/19/2023 10:07 AM CDT DTL Sodium, S 140 135 - 145 mmol/L 07/19/2023 10:07 AM CDT DTL Chloride, S 102 98 - 107 mmol/L 07/19/2023 10:07 AM CDT DTL Bicarbonate, S 27 22 - 29 mmol/L 07/19/2023 10:07 AM CDT DTL Anion Gap 11 7 - 15 07/19/2023 10:07 AM CDT DTL BUN (Blood Urea Nitrogen), S 11 6 - 21 mg/dL 07/19/2023 10:07 AM CDT DTL Creatinine 0.79 0.59 - 1.04 mg/dL 07/19/2023 10:07 AM CDT DTL Estimated GFR (eGFR) >90 >=60 mL/min/BS A 07/19/2023 10:07 AM CDT DTL Comment: Estimated GFR calculated using the 2020 CKD_EPI creatinine equation. Calcium, Total, S 9.8 8.6 - 10.0 mg/dL 07/19/2023 10:07 AM CDT DTL Glucose, S 95 70 - 140 mg/dL 07/19/2023 10:07 AM CDT DTL Protein, Total, S 7.7 6.3 - 7.9 g/dL 07/19/2023 10:07 AM CDT DTL Albumin, S 4.7 3.5 - 5.0 g/dL 07/19/2023 10:07 AM CDT DTL Aspartate Aminotransferase (AST), S 23 8 - 43 U/L 07/19/2023 10:07 AM CDT DTL Alkaline Phosphatase, S 45 35 - 104 U/L 07/19/2023 10:07 AM CDT DTL Alanine Aminotransferase (ALT), S 22 7 - 45 U/L 07/19/2023 10:07 AM CDT DTL Bilirubin, Total, S 0.2 <=1.2 mg/dL 07/19/2023 10:07 AM CDT DTL Blood (Blood, Venous) 07/19/2023 8:58 AM CDT 07/19/2023 9:36 AM CDT Iqra Cruz LAB BLOOD ADD-ON [facility] [address] [place] [address], [facility] DTL [facility] [address] [place] [address] * 25-Hydroxyvitamin D2 and D3 (07/19/2023 8:58 AM CDT) 25-Hydroxy D2 4.2 ng/mL 07/19/2023 11:39 PM CDT [facility] 25-Hydroxy D3 45 ng/mL 07/19/2023 11:39 PM CDT SDS 25-Hydroxy D Total 49 ng/mL 2022 11:39 PM CDT [facility] Comment: ----REFERENCE VALUE---- 25-HYDROXY D TOTAL (D2+D3) Optimum levels in the healthy population are 20-50, patients with bone disease may benefit from higher levels within this range. ----ADDITIONAL INFORMATION---- This test was developed and its performance characteristics determined by [facility] in a manner consistent with CLIA requirements. This test has not been cleared or approved by the U.S. Food and Drug Administration. Blood (Blood, Venous) 07/19/2023 8:58 AM CDT 07/19/2023 10:49 AM CDT Iqra Cruz LAB BLOOD ADD-ON [facility] [address] [place] [address] [facility] [address] [place] [address] [place] [address] * Ferritin (07/19/2023 8:58 AM CDT) Ferritin, S 48 6 - 175 mcg/L 07/19/2023 10:07 AM CDT DTL Blood (Blood, Venous) 07/19/2023 8:58 AM CDT 07/19/2023 9:36 AM CDT Iqra Cruz LAB BLOOD ADD-ON [facility] [address] [place] [address], [facility] DTL [facility] 200 [place] [address] * Iron and Total Iron-Binding Capacity (07/19/2023 8:58 AM CDT) Iron 50 35 - 145 mcg/dL 07/19/2023 10:07 AM CDT DTL Total Iron Binding Capacity 307 250 - 400 mcg/dL 07/19/2023 10:07 AM CDT DTL Percent Saturation 16 14 - 50 % 07/19/2023 10:07 AM CDT DTL Blood (Blood, Venous) 07/19/2023 8:58 AM CDT 07/19/2023 9:36 AM CDT Iqra Cruz LAB BLOOD ADD-ON [facility] 200 [place] [address], [facility] 200 [place] [address] * Vitamin B12 Assay (07/19/2023 8:58 AM CDT) Pathologist [facility] Vitamin B12 Assay, S 319 180 - 914 ng/L 07/19/2023 10:37 AM CDT DTL Comment: ----ADDITIONAL INFORMATION---- In patients being evaluated for vitamin B12 deficiency who have intrinsic factor blocking antibodies (IFBA), false elevations of B12 may occur due to IFBA interference thus potentially obscuring a physiological deficiency of B12. If observed B12 concentrations are discordant with clinical presentation, measurement of methylmalonic acid (MMA) should be considered. Blood (Blood, Venous) 07/19/2023 8:58 AM CDT 07/19/2023 9:36 AM CDT Iqra Cruz LAB BLOOD ADD-ON [facility] 200 [place] [address], [facility] 200 [place] [address] * (ABNORMAL) CBC with Differential, Blood (07/19/2023 8:58 AM CDT) Hemoglobin 13.7 11.6 - 15.0 g/dL 07/19/2023 9:33 AM CDT DTL Hematocrit 42.4 35.5 - 44.9 % 07/19/2023 9:33 AM CDT DTL Erythrocytes 4.97 3.92 - 5.13 x10(12)/L 07/19/2023 9:33 AM CDT DTL MCV 85.3 78.2 - 97.9 fL 07/19/2023 9:33 AM CDT DTL RBC Distrib Width 13.2 12.2 - 16.1 % 07/19/2023 9:33 AM CDT DTL Platelet Count 308 157 - 371 x10(9)/L 07/19/2023 9:33 AM CDT DTL Leukocytes 8.1 3.4 - 9.6 x10(9)/L 07/19/2023 9:33 AM CDT DTL Neutrophils 3.90 1.56 - 6.45 x10(9)/L 07/19/2023 9:33 AM CDT DHPM Lymphocytes 3.41(H) 0.95 - 3.07 x10(9)/L 07/19/2023 9:33 AM CDT DTL Monocytes 0.56 0.26 - 0.81 x10(9)/L 07/19/2023 9:33 AM CDT DTL Eosinophils 0.16 0.03 - 0.48 x10(9)/L 07/19/2023 9:33 AM CDT DTL Basophils 0.08 0.01 - 0.08 x10(9)/L 07/19/2023 9:33 AM CDT DTL Blood (Blood, Venous) 07/19/2023 8:58 AM CDT 07/19/2023 9:20 AM CDT Iqra Cruz LAB BLOOD ADD-ON [facility] [address] [place] [address], [place] DTL [facility] [address] [place] [address] [facility] 200 [place] [address] * CRP (C-Reactive Protein) (07/19/2023 8:58 AM CDT) C-Reactive Protein (CRP), S <3.0 <5.0 mg/L 07/19/2023 10:07 AM CDT DTL Blood (Blood, Venous) 07/19/2023 8:58 AM CDT 07/19/2023 9:36 AM CDT Iqra Cruz LAB BLOOD ADD-ON [facility] 200 [place] [address], [facility] [address] [place] [address] documented in this encounter Visit Diagnoses Diagnosis Colitis Crohn's (HCC) Crohn's Disease (HCC) Diarrhea documented in this encounter
--- OUTSIDE RECORDS SUMMARY | 2023-12-10 15:16 | XMS_ITS | Encounter Summary ---
Author Name Unknown Organization [facility] Address [address] [place] [address] Care Team Providers Care Probation Officer Name Role Phone Unavailable Primary Care Provider Unavailabl e Reason for Visit * Reason Onset Date Comments Remicade order faxed to [facility] 08/20/2023 Encounter Details Date Type Department Care Team (Latest Contact Info) Description 08/20/2023 Clinical Communication Division of Gastroenterology in [place], [place] [address] [place] [address] Lissett Crowe M.D. [address] [place] [address] Remicade order faxed to [facility] Social History Tobacco Use Types Packs/Day Years [...] often do you attend chur ch or yazidi services? 1 to 4 times per year 12/27/2020 Do you belong to any clubs o r organizations such as jainism groups, unions, fraternal or athletic groups, or [...] care, and heating? Not very hard 12/27/2020 [facility] - Occupational Stress [...]
--- OUTSIDE RECORDS SUMMARY | 2023-12-10 15:16 | XMS_ITS | Encounter Summary ---
Author Name Unknown Organization [facility] Address [address] [place] [address] Care Team Providers Care Electrical Tests Supervisor Name Role Phone Unavailable Primary Care Provider Unavailabl e Reason for Referral * Outpatient (Routine) - Closed Specialty Diagnoses / Procedures Referred By Contact Referred To Contact Gastroenterology and Hepatology Diagnoses Colitis Crohn's (HCC) Simba Espinoza Jr., M.D. [address] [place] [phone] [facility] Referral ID Status Reason Start Date Expiration Date Visits Re quested Visits Authorized [id number] Closed 01/11/2023 01/10/2026 1 1 Scheduling Instructions This is an Anni rotate pt D THERAPIST Reason for Visit * Reason Onset Date Comments Remicade PA renewal denied 01/11/2023 Encounter Details Date Type Department Care Team (Latest Contact Info) Description 01/11/2023 Clinical Communication Division of Gastroenterology in [place], [place] [address] [place] [phone] Simba Espinoza Jr., M.D. [address] [place] [phone] Remicade PA renewal denied Social History Tobacco Use Types Packs/Day Years [...] How often do you attend chur or christianity services? 1 to 4 times per year 12/27/2020 Do you belong to any clubs o r organizations such as restorationist groups, unions, fraternal or athletic groups, or [...] care, and heating? Not very hard 12/27/2020 [facility] - Occupational [...] PM CDT documented as of this encounter Miscellaneous Notes * Telephone Encounter - Simba Espinoza Jr., M.D. - 01/11/2023 4:42 PM CHILD THERAPIST This note is to confirm that Ms Caren Wheeler does not severe heart failure, and it is very reasonable to proceed with her infliximab infusions, which she has tolerated for many years. D THERAPIST documented in this encounter Plan of Treatment Scheduled Referrals Name Type Priority Associated Diagnoses Order Schedule Gastroenterology and Hepatology office visit (clinic) Outpatient Referral Routine Colitis Crohn's (HCC) Expected: 01/11/2023 (Approximate), Expires: 04/10/2024 documented as of this encounter Visit Diagnoses Diagnosis Colitis Crohn's (HCC)- Primary documented in this encounter
--- OUTSIDE RECORDS SUMMARY | 2023-12-10 15:16 | XMS_ITS | Encounter Summary ---
Author Name Unknown Organization [facility] Address [address] [place] [address] Care Team Providers Care Hand Icer Name Role Phone Unavailable Primary Care Provider Unavailabl e Reason for Referral * Outpatient (Routine) - Authorized Specialty Diagnoses / Procedures Referred By Contact Referred To Contact Gastroenterology and Hepatology Diagnoses Colitis Crohn's (HCC) Crohn's Disease (HCC) Diarrhea Iqra Rao M.D. 200 [place] [address] [facility] Referral ID Status Reason Start Date Expiration Date V isits Requested Visits Authorized [id number] Authorized 07/19/2023 2026 1 1 Scheduling Instructions Annual 2023, rotate * Outpatient (Routine) - Closed Specialty Diagnoses / Procedures Referred By Conttigre t Referred To Contact Dermatology Diagnoses Colitis Crohn's (HCC) Crohn's Disease (HCC) Iqra Rao M.D. [address] [place] [address] [facility] Referral ID Status Reason Start Date Expiration Date Visits Re quested Visits Authorized [id number] Closed 07/19/2023 2024 1 1 * Outpatient (Routine) - Authorized Specialty Diagnoses / Procedures Referred By Conttigre hdz Referred To Contact Diagnoses Colitis Crohn's (HCC) Crohn's Disease (HCC) Diarrhea Procedures Colonoscopy Iqra Rao M.D. [address] [place] [phone] [facility] Referral ID Status Reason Start Date Expiration Date V isits Requested Visits Authorized [id number] Authorized 07/19/2023 2024 1 1 Reason for Visit * Outpatient (Routine) - Closed Specialty Diagnoses / Procedures Referred By Contact Referred To Contact Gastroenterology and Hepatology Diagnoses Colitis Crohn's (HCC) Simba Espinoza Jr., M.D. [address] [place] [phone] [facility] Referral ID Status Reason Start Date Expiration Date Visits Re quested Visits Authorized [id number] Closed 01/11/2023 01/10/2026 1 1 Encounter Details Date Type Department Care Team (Latest Contact Info) Description 07/19/2023 8:00 AM CDT Office Visit Division of Gastroenterology in [place], [place] [address] [place] [phone] Simba Espinoza Jr., M.D. [address] [place] [phone] Iqra Rao M.D. [address] [place] [phone] Colitis Crohn's (HCC) (Primary Dx); Crohn's Disease (HCC); Diarrhea Social History Tobacco Use Types Packs/Day Years [...] How often do you attend chur or jainism services? 1 to 4 times per year 12/27/2020 Do you belong to any clubs o r organizations such as orthodoxy groups, unions, fraternal or athletic groups, or [...] care, and heating? Not very hard 12/27/2020 [facility]at [facility] - Occupational [...] PM CDT documented as of this encounter Last Filed Vital Signs Vital Sign Reading Time Taken Comments Blood Pressure 113/84 07/19/2023 8:08 AM CDT Pulse 60 07/19/2023 8:08 AM CDT Temperature - - Respiratory Rate - - Oxygen Saturation - - Inhaled Oxygen Concentration - - Weight 64 kg (141 lb 1.5 oz) 07/19/2023 8:08 AM CDT Height 170.2 cm (5' 7) 07/19/2023 8:08 AM CDT Body Mass Index 22.1 07/19/2023 8:08 AM CDT documented in this encounter Consult Notes * Iqra Rao M.D. - 07/19/2023 8:00 AM CDT SUBJECTIVE Chief Complaint/Reason for Visit Crohn's ileocolitis Caren Wheeler is a 33 y.o. female who presents for evaluation of Crohn's ileocolitis. She was a previous patient of Pita J Soto, P.A. Last follow-up on 01/19/2022. Patient was diagnosed in December 2011. Presentation symptoms were diarrhea, blood in the stools, and abdominal pain. She required hospitalization at [facility] upon diagnosis She is no history of IBD related surgery. After diagnosis she was started on prednisone and has been on infliximabsince then, currently on 10 milligrams/kilogram every 8 weeks. Of note, in 2020 she had anticipatory symptoms before infliximab, had low trough without antibodies and the dose was increased to 10 milligram/kilogram. Colonoscopy in 2020 showed endoscopic and histologic remission. During follow-up in 01/2022 she had some report of rectal bleeding and was found to have an anal fissure. Trough levels 01/2022 therapeutic at 26, and negative fecal calpro. Interval history She continues to do well clinically. Denies any flare ups in the past 3 years. Usually 1 bowel movement per day, formed, type 3 or type 6 sometimes. No abdominal pain. The very occasional episodes ofsmall rectal bleeding related to stress, and with associated abdominal pain that do not last more than a few days and resolved spontaneously. No arthritis, but has joint stiffness since diagnosis. She came with her , recently got in [place]. She is planning on becoming inthe near future. She works as a teacher, lives in [place]. OBJECTIVE Physical Exam Physical Exam General: In no acute distress. Eyes: Clear conjunctiva without injection or icterus. Lung: Breathing comfortably on room air. Clear to auscultation, no crackles, rhonchi, or wheezes. CV: Normal rate and regular rhythm. S1, S2 auscultated with no murmurs. Abdomen: Soft, non-distended, non-tender to palpation. Normoactive bowel sounds. No masses palpated. Extremities: No lower extremity edema. Neuro: AAO x 3. ASSESSMENT / PLAN # Crohn's ileocolitis In summary, very pleasant patient who returns for follow-up for history of Crohn's disease, currently on infliximab 10 mg/kg every 8 weeks, with good therapeutic trough levels in 2021, and disease indeep remission during her last colonoscopy in 2020. Patient continues to do well, currently in clinical remission. We discussed about her excellent questions on and biologics, and summarized some findings of the PIANO study, highlighting favorable outcomes of use of biologics during . She is in remission at this time, which is also the best time to consider . Commented the patient to continue with infliximab use at the current dose. She is due for surveillance colonoscopy, and she will need propofol given uncomfortable experience with moderate sedation last time. Also recommended following up with Dermatology and her PCP to update vaccinations especially now prior to . Recommendations Surveillance colonoscopy with terminal ileum exam and surveillance biopsies. Lab work for IBD follow-up Continue with infliximab 10 milligrams/kg every 8 weeks. Recommend annual dermatology exam and to be up-to-date vaccinations. Especially recommended to return to PCP for vaccination since she is planning on conceiving in the future. Lab work today Orders Placed This Encounter Procedures CRP (C-Reactive Protein) CBC with Differential, Blood Vitamin B12 Assay Iron and Total Iron-Binding Capacity Ferritin 25-Hydroxyvitamin D2 and D3 Comprehensive Metabolic Panel Dermatology - Skin check consult (clinic) Colonoscopy . documented in this encounter Plan of Treatment Scheduled Orders Name Type Priority Associated Diagnoses Orde r Schedule Colonoscopy GI Routine Colitis Crohn's (HCC) Crohn's Disease (HCC) Diarrhea Expected: 07/19/2023 (Approximate), Expires: 10/19/2024 Scheduled Referrals Name Type Priority Associated Diagnoses Order Schedule Dermatology - Skin check consult (clinic) Outpatient Referral Routine Colitis Crohn's (HCC) Crohn's Disease (HCC) Expected: 07/19/2023 (Approximate), Expires: 10/19/2024 Gastroenterology and Hepatology office visit (clinic) Outpatient Referral Routine Colitis Crohn's (HCC) Crohn's Disease (HCC) Diarrhea Expected: 07/19/2024 (Approximate), Expires: 10/19/2024 documented as of this encounter Results * Comprehensive Metabolic Panel [...] AM CDT Iqra Cruz LAB BLOOD ADD-ON [facility] [address] [place] [address], [facility] DTL [facility] [address] [place] [address] * 25-Hydroxyvitamin D2 and D3 (07/19/2023 8:58 AM CDT) 25-Hydroxy D2 4.2 ng/mL 07/19/2023 11:39 PM CDT [facility] 25-Hydroxy D3 45 ng/mL 07/19/2023 11:39 PM CDT SDS 25-Hydroxy D Total 49 ng/mL 2022 11:39 PM CDT SDS Comment: ----REFERENCE VALUE---- 25-HYDROXY D TOTAL (D2+D3) Optimum levels in the healthy population are 20-50, patients with bone disease may benefit from higher levels within this range. ----ADDITIONAL INFORMATION---- This test was developed and its performance characteristics determined by [facility] in a manner consistent with CLIA requirements. This test has not been cleared or approved by the U.S. Food and Drug Administration. Blood (Blood, Venous) 07/19/2023 8:58 AM CDT 07/19/2023 10:49 AM CDT Iqra Cruz LAB BLOOD ADD-ON [facility] [address] [place] [address] [facility] [address] [place] [address] [place] [address] * Ferritin (07/19/2023 8:58 AM CDT) Ferritin, S 48 6 - 175 mcg/L 07/19/2023 10:07 AM CDT DTL Blood (Blood, Venous) 07/19/2023 8:58 AM CDT 07/19/2023 9:36 AM CDT Iqra Cruz LAB BLOOD ADD-ON [facility] [address] [place] [address], [facility] 200 [place] [address] * Iron and Total Iron-Binding Capacity (07/19/2023 8:58 AM CDT) Iron 50 35 - 145 mcg/dL 07/19/2023 10:07 AM CDT DTL Total Iron Binding Capacity 307 250 - 400 mcg/dL 07/19/2023 10:07 AM CDT DTL Percent Saturation 16 14 - 50 % 07/19/2023 10:07 AM CDT DTL Blood (Blood, Venous) 07/19/2023 8:58 AM CDT 07/19/2023 9:36 AM CDT Iqra Cruz LAB BLOOD ADD-ON [facility] 200 [place] [address], [facility] 200 [place] [address] * Vitamin B12 Assay (07/19/2023 8:58 AM CDT) Pathologist [facility] Vitamin B12 Assay, S 319 180 - [...] AM CDT Iqra Cruz LAB BLOOD ADD-ON [facility] [address] [place] [address], [facility] [address] [place] [address] * (ABNORMAL) CBC with Differential, Blood (07/19/2023 [...] AM CDT Iqra Cruz LAB BLOOD ADD-ON [facility] [address] [place] [address], [facility] [address] [place] [address] [facility] [address] [place] [address] * CRP (C-Reactive Protein) (07/19/2023 8:58 AM CDT) C-Reactive Protein (CRP), S <3.0 <5.0 mg/L 07/19/2023 10:07 AM CDT DTL Blood (Blood, Venous) 07/19/2023 8:58 AM CDT 07/19/2023 9:36 AM CDT Iqra Cruz LAB BLOOD ADD-ON [facility] [address] [place] [address], [facility] [address] [place] [address] documented in this encounter Visit Diagnoses Diagnosis Colitis Crohn's (HCC)- Primary Crohn's Disease (HCC) Diarrhea documented in this encounter
--- OUTSIDE RECORDS SUMMARY | 2023-12-10 15:16 | XMS_ITS | Encounter Summary ---
Author Name Unknown Organization [facility] Address [address] [place] [address] Care Team Providers Care Street Sweeper Operator Name Role Phone Unavailable Primary Care Provider Unavailabl e Reason for Visit * Reason Onset Date Comments Switch to biosimilar/infliximab 07/23/2023 Encounter Details Date Type Department Care Team (Latest Contact Info) Description 07/23/2023 Clinical Communication Division of Gastroenterology in [place], [place] [address] [place] [address] Iqra Rao M.D. [address] [place] [address] Switch to biosimilar/inflix imab Social History Tobacco Use Types Packs/Day Years [...] How often do you attend chur or mormon services? 1 to 4 times per year 12/27/2020 Do you belong to any clubs o r organizations such as evangelical groups, unions, fraternal or athletic groups, or [...] care, and heating? Not very hard 12/27/2020 [facility] [place] of Occupat ional Health - Occupational Stress [...]
== END 2023-12-10 14:59 | disposition home or self-care (01) ==
PROVIDERS: Visit Provider Physician Assistant
DX: Z34.91 Encounter for supervision of normal pregnancy, unspecified, first trimester (principal); O34.11 Maternal care for benign tumor of corpus uteri, first trimester; D25.1 Intramural leiomyoma of uterus; Z3A.08 8 weeks gestation of pregnancy
CPT/HCPCS: 76817; 86592; 86703; 86704; 86706; 86762; 86787; 86803; 86850; 86900; 86901; 87086; 87340; 87491; 87591

== ENCOUNTER 2023-12-10 16:27 | Outpatient (CLI) | payer BC, SELFPAY ==
--- OUTSIDE RECORDS SUMMARY | 2023-12-10 16:31 | XMS_ITS | Encounter Summary ---
Author Name Unknown Organization [facility] Address [address] [place] [address] Care Team Providers Care Cementer Oil Well Name Role Phone Unavailable Primary Care Provider Unavailabl e Reason for Visit * Reason Onset Date Comments Switch to biosimilar/infliximab 07/23/2023 Encounter Details Date Type Department Care Team (Latest Contact Info) Description 07/23/2023 Clinical Communication Division of Gastroenterology in [place], [place] [address] [place] [address] Iqra Rao M.D. [address] [place] [address] Switch to biosimilar/inflix imab Social History Tobacco [...] How often do you attend chur or cheondoism services? 1 to 4 times per year 12/27/2020 Do you belong to any clubs o r organizations such as anglican groups, unions, fraternal or athletic groups, or [...] care, and heating? Not very hard 12/27/2020 [facility] of Occupat ional Health - Occupational [...]
--- OUTSIDE RECORDS SUMMARY | 2023-12-10 16:31 | XMS_ITS | Clinical Summary ---
Author Name Unknown Organization [facility] Address [address] [place] [address] Care Team Providers Care Manager Administration Name Role Phone Unavailable Primary Care Provider Unavailabl e Source Comments Patient records contain information from all sites at [facility]. For routine questions regarding patient records, call [phone] during business hours, M-F 8:00 AM - 5:00 PM Central Time. Record requests for emergency care only can be directed to [phone] at any time.[facility] Allergies Active Allergy Reactions Criticality Noted [...] NOSTRIL DAILY 48 g 0 11/01/2022 Active [id number]-asb-C (MOVIPREP) 100-7.5-2.691 gram per packetIndications:C olitis Crohn's [...] Department Care Team Description 11/29/2023 8:15 AM CATERING CONVENTION SERVICES MANAGER Comprehensive Visit Department of Dermatology in [place], [place] [address] [place] [address] Iqra Rao M.D. McEvoy, Marian T, M.D. Screening Examination Skin Cancer (Primary Dx); Immunodeficiency (HCC); Dermatoheliosis; Keratosis Seborrheic; Angioma Leonardo; Nevi Multiple 11/28/2023 11:59 PM CATERING CONVENTION SERVICES MANAGER Hospital Encounter Division of Gastroenterology in [place], [place] [address] [place] [address] Iqra Rao M.D. Canceled (Clinic: Request) Discharge Disposition: Home or Self Care 09/09/2023 Clinical Communication Division of Gastroenterology in [place], [place] [address] [place] [address] Iqra Rao M.D. from Last 3 Months [...] How often do you attend chur or protestant services? 1 to 4 times per year 12/27/2020 Do you belong to any clubs o r organizations such as rastafari groups, unions, fraternal or athletic groups, or [...] care, and heating? Not very hard 12/27/2020 [facility] of Occupat ional Health - Occupational Stress [...]
--- OUTSIDE RECORDS SUMMARY | 2023-12-10 16:31 | XMS_ITS | Encounter Summary ---
Author Name Unknown Organization [facility] Address [address] [place] [address] Care Team Providers Care Md Physician Dermatologist Name Role Phone Unavailable Primary Care Provider Unavailabl e Reason for Visit * Reason Onset Date Comments Remicade order faxed to [facility] [place] [facility] 08/20/2023 Encounter Details Date Type Department Care Team (Latest Contact Info) Description 08/20/2023 Clinical Communication Division of Gastroenterology in [place], [place] [address] [place] [address] Lissett Crowe M.D. [address] [place] [address] Remicade order fax[facility] to [facility] Social History Tobacco Use Types Packs/Day Years [...] often do you attend chur ch or oriental orthodox services? 1 to 4 times per year 12/27/2020 Do you belong to any clubs o r organizations such as scientologist groups, unions, fraternal or athletic groups, or [...]
--- OUTSIDE RECORDS SUMMARY | 2023-12-10 16:31 | XMS_ITS ---
Author Name Unknown Organization [facility] Address [address] [place] [address] Care Team Providers Care Security Guard Supervisor Name Role Phone Unavailable Unavailable Unavailable Surgery Details Not on file Complications Check Surgery Details section. Procedure Estimated Blood Loss Check Surgery Details section. Procedure Findings Check Surgery Details section. Procedure Specimens Taken Check Surgery Details section.
--- OUTSIDE RECORDS SUMMARY | 2023-12-10 16:31 | XMS_ITS | Encounter Summary ---
Author Name Unknown Organization [facility] Address [address] [place] [address] Care Team Providers Care Die Finisher Name Role Phone Unavailable Primary Care Provider Unavailabl e Encounter Details Date Type Department Care Team (Latest Contact Info) Description 07/19/2023 8:49 AM CDT - 07/19/2023 11:59 PM CDT Hospital Encounter Department of Laboratory Medicine and Pathology, [place], [place] [address] [place] [address] Iqra Rao M.D. [address] [place] [phone] Colitis Crohn's (HCC); Crohn's Disease (HCC); Diarrhea [...] week 12/27/2020 How often do you attend [facility] or roman catholic services? 1 to [...] care, and heating? Not very hard 12/27/2020 [facility] of Occupat ional Health - Occupational [...] Apply to anus 30 g 0 01/19/2022 [id number]-[id number]-ZDd-asb-C (MOVIPREP) 100-7.5-2.691 gram per packetIndications:Coli tis Crohn's [...] AM CDT Iqra Cruz LAB BLOOD ADD-ON [facility] [address] [place] [address], [facility] DTL [facility] [address] [place] [address] * 25-Hydroxyvitamin D2 and D3 (07/19/2023 8:58 AM CDT) 25-Hydroxy D2 4.2 ng/mL 07/19/2023 11:39 PM CDT [facility] 25-Hydroxy D3 45 ng/mL 07/19/2023 11:39 PM CDT SDS 25-Hydroxy D Total 49 ng/mL 2022 11:39 PM CDT [facility] Comment: ----REFERENCE VALUE---- 25-HYDROXY D TOTAL (D2+D3) Optimum levels in the healthy population are 20-50, patients with bone disease may benefit from higher levels within this range. ----ADDITIONAL INFORMATION---- This test was developed and its performance characteristics determined by [facility] in a manner consistent with CLIA requirements. This test has not been cleared or approved by the U.S. Food and Drug Administration. Blood (Blood, Venous) 07/19/2023 8:58 AM CDT 07/19/2023 10:49 AM CDT Iqra Cruz LAB BLOOD ADD-ON [facility] [address] [place] [address] [facility] [address] [place] [address] [place] [address] * Ferritin (07/19/2023 8:58 AM CDT) Ferritin, S 48 6 - 175 mcg/L 07/19/2023 10:07 AM CDT DTL Blood (Blood, Venous) 07/19/2023 8:58 AM CDT 07/19/2023 9:36 AM CDT Iqra Cruz LAB BLOOD ADD-ON [facility] [address] [place] [address], [facility] DTL [facility] [address] [place] [address] * Iron and Total Iron-Binding Capacity (07/19/2023 8:58 AM CDT) Iron 50 35 - 145 mcg/dL 07/19/2023 10:07 AM CDT DTL Total Iron Binding Capacity 307 250 - 400 mcg/dL 07/19/2023 10:07 AM CDT DTL Percent Saturation 16 14 - 50 % 07/19/2023 10:07 AM CDT DTL Blood (Blood, Venous) 07/19/2023 8:58 AM CDT 07/19/2023 9:36 AM CDT Iqra Cruz LAB BLOOD ADD-ON [facility] [address] [place] [address], [facility] [address] [place] [address] * Vitamin B12 Assay (07/19/2023 8:58 AM CDT) Pathologist [facility] Vitamin B12 Assay, S 319 180 - [...] AM CDT Iqra Cruz LAB BLOOD ADD-ON [facility] [address] [place] [address], [facility] [address] [place] [address] * (ABNORMAL) CBC with Differential, Blood (07/19/2023 [...] AM CDT Iqra Cruz LAB BLOOD ADD-ON [facility] [address] [place] [address], [place] DTL [facility] [address] [place] [address] [facility] [address] [place] [address] * CRP (C-Reactive Protein) (07/19/2023 8:58 AM CDT) C-Reactive Protein (CRP), S <3.0 <5.0 mg/L 07/19/2023 10:07 AM CDT DTL Blood (Blood, Venous) 07/19/2023 8:58 AM CDT 07/19/2023 9:36 AM CDT Iqra Cruz LAB BLOOD ADD-ON [facility] [address] [place] [address], [facility] [address] [place] [address] documented in this encounter Visit Diagnoses Diagnosis Colitis Crohn's (HCC) Crohn's Disease (HCC) Diarrhea documented in this encounter
--- OUTSIDE RECORDS SUMMARY | 2023-12-10 16:31 | XMS_ITS | Referral Summary ---
Author Name Unknown Organization [facility] Address [address] [place] [address] Care Team Providers Care Shift Supervisor Name Role Phone Unavailable Primary Care Provider Unavailabl e Source Comments Patient records contain information from all sites at [facility]. For routine questions regarding patient records, call [phone] during business hours, M-F 8:00 AM - 5:00 PM Central Time. Record requests for emergency care only can be directed to [phone] at any time.[facility] Encounters Date Type Department Care Team Description 11/29/2023 8:15 AM WINDOW SHADE INSTALLER Comprehensive Visit Department of Dermatology in [place], [place] [address] [place] [address] Iqra Rao M.D. McEvoy, Marian T, M.D. Screening Examination Skin Cancer (Primary Dx); Immunodeficiency (HCC); Dermatoheliosis; Keratosis Seborrheic; Angioma Leonardo; Nevi Multiple 11/28/2023 11:59 PM WINDOW SHADE INSTALLER Hospital Encounter Division of Gastroenterology in [place], [place] [address] [place] [address] Iqra Rao M.D. Canceled (Clinic: Request) Discharge Disposition: Home or Self Care 09/09/2023 Clinical Communication Division of Gastroenterology in [place], [place] [address] [place] [address] Iqra Rao M.D. from Last 3 Months [...] NOSTRIL DAILY 48 g 0 11/01/2022 Active [id number] ezd-ToJe-FWo-asb-C (MOVIPREP) 100-7.5-2.691 gram per packetIndications:C olitis Crohn's [...] often do you attend chur ch or christian services? 1 to 4 times per year 12/27/2020 Do you belong to any clubs o r organizations such as religious groups, unions, fraternal or athletic groups, or [...] care, and heating? Not very hard 12/27/2020 [facility] [place] of Occupat ional Health - Occupational Stress [...]
--- OUTSIDE RECORDS SUMMARY | 2023-12-10 16:31 | XMS_ITS | Encounter Summary ---
Author Name Unknown Organization [facility] Address [address] [place] [address] Care Team Providers Care Mainframe Architect Name Role Phone Unavailable Primary Care Provider Unavailabl e Encounter Details Date Type Department Care Team (Latest Contact Info) Description 09/09/2023 Clinical Communication Division of Gastroenterology in [place], [place] [address] [place] [address] Iqra Rao M.D. [address] [place] [phone] Social History Tobacco Use Types Packs/Day Years [...] often do you attend chur ch or episcopal services? 1 to 4 times per year 12/27/2020 Do you belong to any clubs o r organizations such as lutheran groups, unions, fraternal or athletic groups, or [...]
--- OUTSIDE RECORDS SUMMARY | 2023-12-10 16:31 | XMS_ITS | Encounter Summary ---
Author Name Unknown Organization [facility] Address [address] [place] [address] Care Team Providers Care Disability Representative Name Role Phone Unavailable Primary Care Provider Unavailabl e Reason for Visit * Outpatient (Routine) - Authorized Specialty Diagnoses / Procedures Referred By Hillary hdz Referred To Contact Diagnoses Colitis Crohn's (HCC) Crohn's Disease (HCC) Diarrhea Procedures Colonoscopy Iqra Rao M.D. [address] [place] [address] [facility] Referral ID Status Reason Start Date Expiration Date V isits Requested Visits Authorized [id number] Authorized 07/19/2023 2024 1 1 Encounter Details Date Type Department Care Team (Latest Contact Info) Description 11/28/2023 11:59 PM [facility] Encounter Division of Gastroenterology in [place], [place] [address] [place] [phone] Iqra Rao M.D. [address] [place] [phone] Canceled (Clinic: Request) Discharge Disposition: Home or [...] often do you attend chur ch or buddhist services? 1 to 4 times per year 12/27/2020 Do you belong to any clubs o r organizations such as shinto groups, unions, fraternal or athletic groups, or [...] care, and heating? Not very hard 12/27/2020 [facility] Answer Date [...] Apply to anus 30 g 0 01/19/2022 [id number] wuq-ApAy-QBz-asb-C (MOVIPREP) 100-7.5-2.691 gram per packetIndications:Coli tis Crohn's [...]
--- OUTSIDE RECORDS SUMMARY | 2023-12-10 16:31 | XMS_ITS | Encounter Summary ---
Author Name Unknown Organization [facility] Address [address] [place] [address] Care Team Providers Care Green House Manager Name Role Phone Unavailable Primary Care Provider Unavailabl e Reason for Visit * Outpatient (Routine) - Closed Specialty Diagnoses / Procedures Referred By Hillary hdz Referred To Contact Dermatology Diagnoses Colitis Crohn's (HCC) Crohn's Disease (HCC) Iqra Rao M.D. 200 [place] [address] [facility] Referral ID Status Reason Start Date Expiration Date Visits Re quested Visits Authorized [id number] Closed 07/19/2023 2024 1 1 Encounter Details Date Type Department Care Team (Latest Contact Info) Description 11/29/2023 8:15 AM CODING CLERKS SUPERVISOR Comprehensive Visit Department of Dermatology in [place], [place] [address] [place] [phone] Iqra Rao M.D. [address] [place] [address] [phone] Nataliya Castelan M.D. [address] [place] [phone] Screening Examination Skin Cancer (Primary Dx); Immunodeficiency [...] often do you attend chur ch or holiness services? 1 to 4 times per year [...] care, and heating? Not very hard 12/27/2020 [facility] - Occupational Stress [...] cancer. Ms. Wheeler was last seen in [facility] on 02/21/2021 with Sheryl Rodriguez APRN. A full skin exam was completed and no clinical evidence for skin cancer was found. All skin findings were benign in nature and required no treatment at that visit. Today, she reports she is doing well from a Crohn's standpoint; she was diagnosed 12 years ago. 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 She grew up in [place], [place]. She states she only has one [...] behalf by DULCE Tony, a trained medical assembly. The creation of this record is based on the scribe remotely listening to the visit and the provider's statements to them. This document has been checked and approved by the attending provider. Scribed for Nataliya Castelan M.D. by DULCE Tony, on 11/29/2023, 7:29 AM CODING CLERKS SUPERVISOR. NG CLERKS SUPERVISOR documented in this encounter Plan of Treatment Not on file documented as of this encounter Visit Diagnoses Diagnosis Screening Examination Skin Cancer- Primary Immunodeficiency (HCC) Dermatoheliosis Keratosis Seborrheic Angioma Leonardo Nevi Multiple documented in this encounter
--- OUTSIDE RECORDS SUMMARY | 2023-12-10 16:32 | XMS_ITS | Encounter Summary ---
Author Name Unknown Organization [facility] Address [address] [place] [address] Care Team Providers Care Fabrication And Layout Craftsman Name Role Phone Unavailable Primary Care Provider Unavailabl e Reason for Referral * Outpatient (Routine) - Closed Specialty Diagnoses / Procedures Referred By Contact Referred To Contact Gastroenterology and Hepatology Diagnoses Colitis Crohn's (HCC) Simba Espinoza Jr., M.D. [address] [place] [phone] [facility] Referral ID Status Reason Start Date Expiration Date Visits Re quested Visits Authorized [id number] Closed 01/11/2023 01/10/2026 1 1 Scheduling Instructions This is an Anni rotate pt TENDER Reason for Visit * Reason Onset Date Comments Remicade PA renewal denied 01/11/2023 Encounter Details Date Type Department Care Team (Latest Contact Info) Description 01/11/2023 Clinical Communication Division of Gastroenterology in [place], [place] [address] [place] [phone] Simba Espinoza Jr., M.D. [address] [place] [phone] Remicade PA renewal denied Social History Tobacco [...] How often do you attend chur or hoahaoism services? 1 to 4 times per year 12/27/2020 Do you belong to any clubs o r organizations such as spiritism groups, unions, fraternal or athletic groups, or [...] Espinoza Jr., M.D. - 01/11/2023 4:42 PM TUB TENDER This note is to confirm that Ms Caren Wheeler does not severe heart failure, and it is very reasonable to proceed with her infliximab infusions, which she has tolerated for many years. TENDER documented in this encounter Plan of Treatment Scheduled Referrals Name Type Priority Associated Diagnoses Order Schedule Gastroenterology and Hepatology office visit (clinic) Outpatient Referral Routine Colitis Crohn's (HCC) Expected: 01/11/2023 (Approximate), Expires: 04/10/2024 documented as of this encounter Visit Diagnoses Diagnosis Colitis Crohn's (HCC)- Primary documented in this encounter
--- OUTSIDE RECORDS SUMMARY | 2023-12-10 16:32 | XMS_ITS | Clinical Summary ---
Author Name Unknown Organization [facility] Address [address] [address] Phone Care Team Providers Care Director Medical Affairs Name Role Phone Unavailable Primary Care Provider Unavailabl e Allergies No known active allergies Medications Medication Sig Dispensed Refills Start Date End Date Status sfvywhsq-ziggrrdkc-pnxv meth (Maxitrol) 3.5-32426-6.[address] 1 Drop into the right [...]
--- OUTSIDE RECORDS SUMMARY | 2023-12-10 16:32 | XMS_ITS | Encounter Summary ---
Author Name Unknown Organization [facility] Address [address] [place] [address] Care Team Providers Care Drawbridge Operator Name Role Phone Unavailable Primary Care Provider Unavailabl e Reason for Referral * Outpatient (Routine) - Authorized Specialty Diagnoses / Procedures Referred By Contact Referred To Contact Gastroenterology and Hepatology Diagnoses Colitis Crohn's (HCC) Crohn's Disease (HCC) Diarrhea Iqra Rao M.D. 200 [place] [phone] [facility] Referral ID Status Reason Start Date Expiration Date V isits Requested Visits Authorized [id number] Authorized 07/19/2023 2026 1 1 Scheduling Instructions Annual 2023, rotate * Outpatient (Routine) - Closed Specialty Diagnoses / Procedures Referred By Conttigre t Referred To Contact Dermatology Diagnoses Colitis Crohn's (HCC) Crohn's Disease (HCC) Iqra Rao M.D. [address] [place] [phone] [facility] Referral ID Status Reason Start Date Expiration Date Visits Re quested Visits Authorized [id number] Closed 07/19/2023 2024 1 1 * Outpatient (Routine) - Authorized Specialty Diagnoses / Procedures Referred By Conttigre hdz Referred To Contact Diagnoses Colitis Crohn's (HCC) Crohn's Disease (HCC) Diarrhea Procedures Colonoscopy Iqra Rao M.D. [address] [place] [phone] [facility] Referral ID Status Reason Start Date Expiration Date V isits Requested Visits Authorized [id number] Authorized 07/19/2023 2024 1 1 Reason for Visit * Outpatient (Routine) - Closed Specialty Diagnoses / Procedures Referred By Contact Referred To Contact Gastroenterology and Hepatology Diagnoses Colitis Crohn's (HCC) Simba Espinoza Jr., M.D. [address] [place] [phone] [facility] Referral ID Status Reason Start Date Expiration Date Visits Re quested Visits Authorized [id number] Closed 01/11/2023 01/10/2026 1 1 Encounter Details Date Type Department Care Team (Latest Contact Info) Description 07/19/2023 8:00 AM CDT Office Visit Division of Gastroenterology in [place], [place] [address] [place] [phone] Simba Espinoza Jr., M.D. [address] [place] [phone] Iqra Rao M.D. [address] [place] [phone] Colitis Crohn's (HCC) (Primary Dx); Crohn's Disease [...] How often do you attend chur or faith services? 1 to 4 times per year 12/27/2020 Do you belong to any clubs o r organizations such as nondenominational groups, unions, fraternal or athletic groups, or [...] care, and heating? Not very hard 12/27/2020 [facility] - Occupational [...] and abdominal pain. She required hospitalization at [facility] upon diagnosis She is no history [...] came with her , recently got in [place]. She is planning on becoming inthe near future. She works as a teacher, lives in [place]. OBJECTIVE Physical Exam Physical Exam General: In [...] AM CDT Iqra Cruz LAB BLOOD ADD-ON [facility] [address] [place] [address], [facility] DTL [facility] [address] [place] [address] * 25-Hydroxyvitamin D2 and D3 (07/19/2023 8:58 AM CDT) 25-Hydroxy D2 4.2 ng/mL 07/19/2023 11:39 PM CDT [facility] 25-Hydroxy D3 45 ng/mL 07/19/2023 11:39 PM CDT SDS 25-Hydroxy D Total 49 ng/mL 2022 11:39 PM CDT SDS Comment: ----REFERENCE VALUE---- 25-HYDROXY D TOTAL (D2+D3) Optimum levels in the healthy population are 20-50, patients with bone disease may benefit from higher levels within this range. ----ADDITIONAL INFORMATION---- This test was developed and its performance characteristics determined by [facility] in a manner consistent with CLIA requirements. This test has not been cleared or approved by the U.S. Food and Drug Administration. Blood (Blood, Venous) 07/19/2023 8:58 AM CDT 07/19/2023 10:49 AM CDT Iqra Cruz LAB BLOOD ADD-ON [facility] [address] [place] [address] [facility] [address] [place] [address] [place] [address] * Ferritin (07/19/2023 8:58 AM CDT) Ferritin, S 48 6 - 175 mcg/L 07/19/2023 10:07 AM CDT DTL Blood (Blood, Venous) 07/19/2023 8:58 AM CDT 07/19/2023 9:36 AM CDT Iqra Cruz LAB BLOOD ADD-ON [facility] [address] [place] [address], [facility] [address] [place] [address] * Iron and Total Iron-Binding Capacity (07/19/2023 [...] CDT Iqra Cruz LAB BLOOD ADD-ON [facility] 200 [place] [address], [facility] [address] [place] [address] * Vitamin B12 Assay (07/19/2023 8:58 AM CDT) Pathologist [facility] Vitamin B12 Assay, S 319 180 - [...] CDT Iqra Cruz LAB BLOOD ADD-ON [facility] 200 [place] [address], [facility] [address] [place] [address] * (ABNORMAL) CBC with Differential, Blood (07/19/2023 [...] CDT Iqra Cruz LAB BLOOD ADD-ON [facility] [address] [place] [address], [facility] [address] [place] [address] [facility] [address] [place] [address] * CRP (C-Reactive Protein) (07/19/2023 8:58 AM CDT) C-Reactive Protein (CRP), S <3.0 <5.0 mg/L 07/19/2023 10:07 AM CDT DTL Blood (Blood, Venous) 07/19/2023 8:58 AM CDT 07/19/2023 9:36 AM CDT Iqra Cruz LAB BLOOD ADD-ON [facility] 200 [place] [address], [facility] 200 [place] [address] documented in this encounter Visit Diagnoses Diagnosis Colitis Crohn's (HCC)- Primary Crohn's Disease (HCC) Diarrhea documented in this encounter
--- OUTSIDE RECORDS SUMMARY | 2023-12-10 16:32 | XMS_ITS | Clinical Summary ---
Author Name Unknown Organization [facility] Address [place], [place] [address] Care Team Providers Care Sow Farm Manager Name Role Phone Pcp, No Primary Care [...] Comments Blood Pressure 118/82 10/25/2014 12:05 PM DEVULCANIZER LOADER Pulse 88 10/25/2014 12:05 PM DEVULCANIZER LOADER Temperature 37.3 ??C (99.1 ??F) 10/25/2014 12:[address] Respiratory Rate - - Oxygen Saturation - - Inhaled Oxygen Concentration - - Weight 70.8 kg (156 lb) 10/25/2014 12:05 PM DEVULCANIZER LOADER Height - - Body Mass Index - [...] age to complete this topic Care Teams Sow Farm Manager Relationship Specialty Start Date End Date Pcp, No . PCP - General 10/25/14
[2023-12-10 19:29] LABS: Chlamydia DNA Amplified* NOT DETECTED (No Detected); GC DNA Amplified* NOT DETECTED (No Detected)
== END 2023-12-10 16:28 | disposition home or self-care (01) ==
PROVIDERS: Visit Provider Physician Assistant
DX: Z34.91 Encounter for supervision of normal pregnancy, unspecified, first trimester (principal)
CPT/HCPCS: 86592; 86703; 86704; 86706; 86762; 86787; 86803; 86850; 86900; 86901; 87086; 87340; 87491; 87591

== ENCOUNTER 2024-04-24 12:46 | Outpatient (CLI) | payer BC, SELFPAY ==
--- NOTE | 2024-04-24 13:00 | CRLHL7_ITS ---
For Patients: As a result of the Century Cures Act, medical imaging exams and procedure reports are released immediately into your electronic medical record. You may view this report before your referring provider. If you have questions, please contact your health care provider. INDICATION: Third trimester scan, evaluate growth. COMPARISON: 12/10/2023 TECHNIQUE: Real time rouse scale imaging of the fetus was performed. FINDINGS: Sonographic imaging demonstrates a single living intrauterine gestation. Fetus demonstrates a regular cardiac rate of 129 beats per minute. Fetus has a breech position. The placenta lies anteriorly. Amniotic fluid volume appears normal and there is a single deepest vertical pocket: 6.7 cm. The estimated weight is 1430gm which lies at the 90th %. BPD 83rd percentile. HC is 65th percentile. AC 91st percentile. FL is 60th percentile. The HC/AC ratio measures 1.05 range (0.98-1.20). IMPRESSION: Sonographic gestational age 29 weeks 4 days and sonographic due date 07/06/2024. Sonographic age 10 days ahead of the clinical age. Estimated weight 90th percentile. Abdominal circumference 91st percentile. Dictated by Slim Luo MD @ 04/24/2024 1:55:42 PM (Electronically Signed)
== END 2024-04-24 12:47 | disposition home or self-care (01) ==
LOC: US 12:47
PROVIDERS: Visit Provider Obstetrics & Gynecology
DX: Z34.93 Encounter for supervision of normal pregnancy, unspecified, third trimester (principal); Z3A.29 29 weeks gestation of pregnancy
CPT/HCPCS: 76816; 86592

== ENCOUNTER 2024-06-18 09:45 | Outpatient (CLI) | payer BC, SELFPAY ==
--- NOTE | 2024-06-18 09:45 | CRLHL7_ITS ---
For Patients: As a result of the Century Cures Act, medical imaging exams and procedure reports are released immediately into your electronic medical record. You may view this report before your referring provider. If you have questions, please contact your health care provider. INDICATION: Supervision of normal TECHNIQUE: Real time rouse scale imaging of the fetus was performed. COMPARISON: 04/24/2024 FINDINGS: Sonographic imaging demonstrates a single living intrauterine gestation. Fetus demonstrates a regular cardiac rate of 144 beats per minute. Fetus has a vertex position. The placenta lies right anterior. Amniotic fluid volume appears normal and there is a single deepest pocket of 6.0 cm. The estimated weight is 2991gm which lies at the 69th %. On the prior OB ultrasound dated 04/24/2024 the estimated weight was at the 89th percentile. BPD 87th percentile. HC 77th percentile. AC 72nd percentile. FL 48th percentile. The fetus was active and demonstrated normal breathing movements. There was normal flexion and extension of the trunk and extremities. IMPRESSION: Normal biophysical profile score 8/8. Sonographic gestational age 37 weeks 0 days and a sonographic due date of 07/09/2024. Sonographic age 1 week ahead of the clinical age. Estimated weight 69th percentile. Abdominal circumference 72nd percentile. Dictated by Slim Luo MD @ 06/19/2024 6:24:24 AM (Electronically Signed)
--- OUTSIDE RECORDS SUMMARY | 2024-06-18 09:47 | XMS_ITS | Referral Summary ---
Author Organization [facility] Address [address] [place] [address] Care Team Providers Care Dynamite Packing Machine Operator Name Role Phone Unavailable Primary Care Provider Unavailabl e Source Comments Patient records contain information from all sites at [facility]. For routine questions regarding patient records, call [phone] during business hours, M-F 8:00 AM - 5:00 PM Central Time. Record requests for emergency care only can be directed to [phone] at any time.[facility] Encounters Date Type Department Care Team Description 04/29/2024 Clinical Communication Division of Gastroenterology in [place], [place] [address] [place] [address] Iqra Rao M.D. from Last 3 Months Allergies Active Allergy Reactions Criticality Noted Date Comments Animal Dander Hives (Reselect Reaction),Itching,Wheezing (Reselect Reaction) High 01/19/2022 Medications Medication Sig Dispensed Refills Start Date End Date Status acetaminophen (for_TYLENOL) 500 mg tablet Take 500 mg by mouth every 6 (six) hours as needed for pain. Active diphenhydrAMINE (BENADRYL) 25 mg capsule Take 1 capsule by mouth as directed. premedication for Remicade 03/18/2014 Active methylprednisolone sod succ/PF (METHYLPREDNISOLONE SOD SUC,PF, IV) Infuse 40 mg into a venous catheter as directed. premedication for Remicade 11/09/2015 Active inFLIXimab (Remicade) 10 mg/mL injection Infuse 100 mg into a venous catheter every 8 (eight) weeks. 09/06/2023 Active hbbwlos-Yw-xndk-FA (VINATE ONE) 60 mg iron-1 mg per tablet Take 1 tablet by mouth daily. Active aspirin [address] tablet Take 1 tablet (81 mg total) by mouth daily. 01/13/2024 Active Active Problems Problem Noted Date Diagnosed Date Gastrointestinal Disorder 03/09/2024 Immunosuppressed State 05/04/2020 Colitis Crohn's 11/02/2015 Reflux Esophageal 11/21/2011 Estimated Date of Delivery Comme nts Yes 07/16/2024 Based on last me nstrual period of 10/10/2023 (Exact Date) Resolved Problems Problem Noted Date Diagnosed Date Resolved Date Crohn's Disease 04/14/2012 05/04/2020 Overview: Crohn's disease Immunizations Name Administration Dates Next Due DTaP, Unspecified 07/29/1997, 4,02/08/1992,1991,1991 H1N1 All Forms 11/14/2009 HPV, Unspecified 08/10/2013,09/25/2012, 0 HepA Adult 12/30/2015 HepB, Unspecified 02/28/2005,07/26/2004,07/29/19 97 Hib (HbOC) (discontinued) 01/13/1993,08/1992,1991,1990 IPV 07/29/1997, 4,1991,1990 Influenza Split 09/15/2012,12/28/2011 Influenza, Unspecified 09/25/2012 MCV4 (Menactra)(Discontinued) 06/18/2006 MCV4, Unspecified 06/18/2006 MMR 08/01/2004,01/13/1993 PPSV23 [...] pur e alcohol) 2 drinks per week [facility] Utilities Answer Date Recorded In the past 12 months has e electric, gas, oil, or water company threatened to shut off services in your home? No 01/09/2024 Social Connection and Isolat ion Panel [NHANES] Answer Date Recorded In a typical week, how many times do you talk on the phone with family, friends, or neighbors? More than three times a week 12/27/2020 How often do you get togethe r with friends or relatives? Once a week 12/27/2020 How often do you attend chur ch or mormon services? 1 to 4 times per year 12/27/2020 Do you belong to any clubs o r organizations such as catholic groups, unions, fraternal or athletic groups, or [...] care, and heating? Not very hard 12/27/2020 [facility] - Occupational Stress [...] exercise (like a brisk walk)? 4 days 01/09/2024 On average, how many minutes do you engage in exercise at this level? 40 min 01/09/2024 Hunger Vital Sign Answer Date Recorded Within the past 12 months, y ou worried that your food would run out before you got the money to buy more. Never true 01/09/20 24 Within the past 12 months, t he food you bought just didn't last and you didn't have money to get more. Never true 01/09/2024 PRAPARE - Transportation Answer Date Re corded In the past 12 months, has l ack of transportation kept you from medical appointments or from getting medications? No 07/2024 In the past 12 months, has l ack of transportation kept you from meetings, work, or from getting things needed for daily living? No 01/09/2024 Nutrition Answer Date Recorded Nutrition: EVOO Fat Source Unknown 01/09 On average, how many serving s of fruits and vegetables do you eat per day (serving size is equal to 1 cup or approximately the size of a tennis ball)? 3-5 01/09/2024 Dental Answer Date Recorded Dental: Regular Dentist Yes 01/09/20 Employment Answer Date Recorded Employment status Employed and actively working without restrictions 01/09/2024 Housing Stability Answer Date Recorded What is your living situation today? I have a [facility] place to live 01/09/2024 Education Answer Date Recorded What is the highest level of school you have completed or the highest degree you have received? Master's degree (e.g., MA, MS, Michaela, MEd, TRACK REPAIR SUPERVISOR, DESEAN) 01/01/2024 Estimated Date of Delivery Comme nts Yes 07/16/2024 Based on last me nstrual period of 10/10/2023 (Exact Date) Sex and Gender Information Value Date Recorded Sex Assigned at Female 02/26/2019 2:40 PM CDT Gender Identity Female 02/26/2019 2:40 PM CDT Sexual Orientation Straight 02/26/2019 2: 40 PM CDT Last Filed Vital Signs Vital Sign Reading Time Taken Comments Blood Pressure 106/70 02/24/2024 2:15 PM CDT Pulse 70 02/24/2024 2:15 PM CDT Temperature 36.6 ??C (97.9 ??F) 02/24/2024 2:15 PM CD T Respiratory Rate 11 02/21/2021 3:15 PM CDT Oxygen Saturation 97% 02/24/2024 2:15 PM CDT Inhaled Oxygen Concentration - - Weight 73 kg (160 lb 15 oz) 02/24/2024 2:15 PM C DT Height 170.2 cm (5' 7) 07/19/2023 8:08 AM CDT Body Mass Index 25.21 07/19/2023 8:08 AM CDT Plan of Treatment Not on file Procedures Procedure Name Priority Date/Time Associated Diagnosis Comments COLONOSCOPY Routine 02/21/2021 1:59 PM CDT Colitis Crohn's (HCC) PATHOLOGY ELECTRICIAN RECTIFIER MAINTENANCE CYTOLOGY Routine 09/25/2012 12:00 AM CDT from Last 3 Months or Most Recently Relevant to Health Maintenance Results * Pathology ELECTRICIAN RECTIFIER MAINTENANCE Cytology (09/25/2012 12:00 AM CDT) 09/25/2012 Narrative [facility] - 09/29/2012 12:18 PM CDT [facility], [address] [place] [address] ? Patient Name: CAREN TORIBIO Collected: 09/25/2012 Address: City/State/Zip: [address] [place] [address] ??[phone] Received: Reported: 09/26/2012 09/29/2012 Soc. Sec. #: ?/Age/Sex 1990 (Age: 22) ??F Physician(s): Lalito OBRIEN MD Copy To: ? [facility] ??[id number] [address] [place], ??[place] ??[address] CYTOPATHOLOGY ELECTRICIAN RECTIFIER MAINTENANCE REPORT FINAL CYTOLOGIC DIAGNOSIS Pap Smear - ThinPrep: NEGATIVE FOR INTRAEPITHELIAL LESION OR MALIGNANCY REACTIVE/REPARATIVE CHANGES. ENDOCERVICAL CELLS/COMPONENT PRESENT. SATISFACTORY SPECIMEN FOR EVALUATION. ??This specimen required a physician interpretation under CLIA 1987 ?? Electronically Signed Out By [facility]/09/29/2012 DANIEL ROSSI M.D. NANI JULES(ASCP) The Pap test is a screening procedure and, as such, is subject to both false positive and false negative results as evidenced by published data. ??It is not a diagnostic test and results should be interpreted in the context of the patient's history and other clinical findings. ??Obtaining periodic Pap tests may help to minimize the consequences of any false negatives that may occur. SPECIMEN(S) RECEIVED: Pap Smear - ThinPrep CLINICAL HISTORY: Date of Last Menstrual Period: 09-22-2012 Other Clinical Conditions: HPV TYPING REQUESTED: IF ASCUS Reggie George M.D. LAB PAP COPATH ORDER [facility]ENNIF[facility] from Last 3 Months or Most Recently Relevant to Health Maintenance
--- OUTSIDE RECORDS SUMMARY | 2024-06-18 09:47 | XMS_ITS ---
Author Organization [facility] Address [address] [place] [address] Care Team Providers Care Operations Supervisor Name Role Phone Unavailable Unavailable Unavailable Surgery Details Not on file Complications Check Surgery Details section. Procedure Estimated Blood Loss Check Surgery Details section. Procedure Findings Check Surgery Details section. Procedure Specimens Taken Check Surgery Details section.
--- OUTSIDE RECORDS SUMMARY | 2024-06-18 09:47 | XMS_ITS | Clinical Summary ---
Author Organization [facility] Address [place], [place] [address] Care Team Providers Care Vessel Manager Name Role Phone Pcp, No Primary [...] Comments Blood Pressure 118/82 10/25/2014 12:05 PM SENIOR MEDIA DIRECTOR Pulse 88 10/25/2014 12:05 PM SENIOR MEDIA DIRECTOR Temperature 37.3 ??C (99.1 ??F) 10/25/2014 12:[address] Respiratory Rate - - Oxygen Saturation - - Inhaled Oxygen Concentration - - Weight 70.8 kg (156 lb) 10/25/2014 12:05 PM SENIOR MEDIA DIRECTOR Height - - Body Mass Index - - Plan of Treatment Health Maintenance Due Date Last Done Comments Tdap 2002 Depression screening for age 12+ 2003 HIV for age 15-65 2006 BMI (ht and wt on same day) for age 18+ 2009 Hepatitis C screening for ag e 18-79 2009 Tetanus booster 2011 COVID-19 vaccine series ( season) 2023 Pap test for age 21-65 08/04/2023 0, 08/04/2020 Influenza for age 9-49 08/02/2024 Pneumococcal series for age 6-64 Aged Out No longer eligible b ased on patient's age to complete this topic Procedures Procedure Name Priority Date/Time Associated Diagnosis Comments BALL ROLLING MACHINE OPERATOR THIN PREP PAP SCREEN IMAGED Routine 08/04/2020 1:52 PM CDT from Last 3 Months or Most Recently Relevant to Health Maintenance Results * BALL ROLLING MACHINE OPERATOR THIN PREP PAP SCREEN IMAGED (08/04/2020 1:52 PM CDT) Case Report Gynecologic Cytology Report ? Case: [id number] ? Authorizing Provider: ??Kyung Celaya MD ?Collected: ? 08/04/2020 1352 ? Ordering Location: ? [facility] ?Received: ?08/06/2020 1057 ? First Screen: ?Jules Zuluaga ? Rescreen: ?Kamilah Gates ? Specimen: ?BALL ROLLING MACHINE OPERATOR ThinPrep Vial Screening, Cervical/Vaginal ? 08/17/2020 2:11 PM CDT [facility] INTERPRETATION/ RESULT NEGATIVE FOR INTRAEPITHELIAL LESION OR MALIGNANCY (NIL) (none) 08/17/2020 2:[address] [facility] IMEN ADEQUACY Satisfactory for evaluation No endocervical component seen 08/17/2020 2:[address] [facility] HPV REQUEST HPV and PAP 08/17/2020 2:[address] [facility] Date of LMP 07/21/2020 08/17/2020 2:[address] [facility] Additional Information 08/17/2020 2:11 PM CDT [facility] Comment: Interpreted at [facility] [employer] [facility] - [address], [place] [address] Automated Review Successful 08/17/2020 2:[address] [facility] Comment:Specimen processed s uccessfully by automated county treasurer device, [employer] Imaging System, [employer] for iPhone and [employer], Inc. ANCILLARY TESTING BALL ROLLING MACHINE OPERATOR HPV Ordered, Please see separate report 08/17/2020 2:[address] [facility] Note The pap test is a screening technique, not a diagnostic procedure. It is used primarily to screen for squamous cancers and precursor lesions. Published studies have shown that it is subject to both false negative and false positive results. The pap test should not be used as the sole means to diagnose or exclude pre-malignant and malignant lesions. 08/17/2020 2:[address] [facility] Other (Cervical/Vagina l) 08/04/2020 1:52 PM CDT 08/06/2020 10:57 AM CDT Kyung Celaya MD PATHOLOGY/CYTOLOGY [facility] [address] [place] [address], [place] from Last 3 Months or Most Recently Relevant to Health Maintenance Care Teams Vessel Manager Relationship Specialty Start Date End Date Pcp, No . PCP - General 10/25/14
--- OUTSIDE RECORDS SUMMARY | 2024-06-18 09:47 | XMS_ITS | Encounter Summary ---
Author Organization [facility] Address [address] [place] [address] Care Team Providers Care Mower Sharpener Name Role Phone Unavailable Primary Care Provider Unavailabl e Reason for Visit * Reason Onset Date Comments Infliximab/ 02/28/2024 Encounter Details Date Type Department Care Team (Latest Contact Info) Description 02/28/2024 Clinical Communication Division of Gastroenterology in [place], [place] [address] [place] [address] Iqra Rao M.D. Infliximab/pregna ncy Social History Tobacco Use Types Packs/Day Years Used Date Smoking Tobacco: Never Smokeless Tobacco: Never Alcohol Use Standard Drinks/Week Comments Yes 0 (1 standard drink = 0.6 oz pur e alcohol) 2 drinks per week [facility] Utilities Answer Date Recorded In the past 12 months has [employer], gas, oil, or water [employer] threatened to shut off services in your [...] How often do you attend chur or orthodoxy services? 1 to 4 times per year [...] Date Recorded Dental: Regular Dentist Yes 01/09/20 24 Employment Answer Date Recorded Employment status Employed and actively working without restrictions 01/09/2024 Housing Stability Answer Date Recorded What is your living situation today? I have a [facility] place to live 01/09/2024 Education Answer Date Recorded What is the highest level of school you have completed or the highest degree you have received? Master's degree (e.g., MA, MS, Michaela, MEd, OUTBOUND TELEMARKETING REPRESENTATIVE, DESEAN) 01/01/2024 Estimated Date of Delivery Comme [...]
--- OUTSIDE RECORDS SUMMARY | 2024-06-18 09:47 | XMS_ITS | Clinical Summary ---
Author Organization [facility] Address [address] [place] [address] Care Team Providers Care Healthcare Economics Manager Name Role Phone Unavailable Primary Care Provider Unavailabl e Source Comments Patient records contain information from all sites at [facility]. For routine questions regarding patient records, call [phone] during business hours, M-F 8:00 AM - 5:00 PM Central Time. Record requests for emergency care only can be directed to [phone] at any time.[facility] Allergies Active Allergy Reactions Criticality Noted Date [...] catheter every 8 (eight) weeks. 09/06/2023 Active lcftwuv-Mq-ypxw-FA (VINATE ONE) 60 mg iron-1 mg per [...] 04/29/2024 Clinical Communication Division of Gastroenterology in [place], [place] [address] [place] [address] Iqra Rao M.D. from Last 3 Months [...] History Relation Name Comments Healthy adult Father Skin cancer Father Alzheimer's disease Maternal Grandfather Heart attack Maternal Grandfather Lung cancer Maternal Grandfather Breast cancer Maternal Grandmother Diabetes Maternal Grandmother Hodgkin's lymphoma Maternal Grandmother Healthy adult Mother High cholesterol Mother IUGR Niece 1 vascular ring w/right sided aortic arch Niece 1 Prostate cancer Paternal Grandfather Heart disease Paternal Grandmother High cholesterol Paternal Grandmother Kidney disease Paternal Grandmother Stroke Paternal Grandmother Anxiety disorder Sister 1 Healthy adult Sister 1 Relation Name Status Comments Father Alive Maternal Grandfather Maternal Grandmother (Age 74) Mother Alive Nephew Fetus - Stillbirth placental abruption Niece 1 Alive Niece 2 Alive Other 1 Fetus - In Utero Other 2 Alive Other 3 Alive Other 4 Alive Paternal Grandfather Paternal Grandmother Alive Sister 1 Alive Sister 2 Alive Social History Tobacco Use Types Packs/Day Years Used Date Smoking Tobacco: Never Smokeless Tobacco: Never Alcohol Use Standard Drinks/Week Comments Yes 0 (1 standard drink = 0.6 oz pur e alcohol) 2 drinks per week [facility] Veronicaities Answer Date Recorded In the past 12 months has [employer], ?, oil, or water [employer] threatened to shut off services in your [...] How often do you attend chur or taoism services? 1 to 4 times per year 12/27/2020 Do you belong to any clubs o r organizations such as presybeterian groups, unions, fraternal or athletic groups, or [...] care, and heating? Not very hard 12/27/2020 [facility] of Occupat ional Health - Occupational Stress [...] your living situation today? I have a [facility] place to live 01/09/2024 Education Answer Date Recorded What is the highest level of school you have completed or the highest degree you have received? Master's degree (e.g., MA, MS, Michaela, MEd, SKIN LAP BONDER, DESEAN) 01/01/2024 Estimated Date of Delivery Comme [...] Cancer Screening 08/04/20232019, 09/25/2012, 12/03/2011 (Performed elsewhere) Depression Screening (Annual PHQ-2) 12/02/2023 Influenza Vaccine (#1) 2024 , 12/30/2015, 09/25/2012, Additional history exists DTaP,Tdap,and Td Vaccines (7 - Td or Tdap) 12/30/2025 12/30/2015, 08/01/2004, 07/29/1997, Additional history exists Hepatitis B Vaccines Completed 02/28/2005, 07/26/2004, 07/29/1997 Varicella Vaccines Completed 06/26/2010, 10/02/1992 HPV Vaccines Completed 08/10/2013, 09/02, 06/26/2010 Colonoscopy Discontinued 02/21/2021, 01/31, 12/19/2015, Additional history exists Colorectal Cancer Surveillance Discontinued CT Colonography Discontinued Cologuard Discontinued RSV vaccine - (32-3 6 weeks) or 60+ years (No Doses Required) Completed Procedures Procedure Name Priority Date/Time Associated Diagnosis Comments COLONOSCOPY Routine 02/21/2021 1:59 PM CDT Colitis Crohn's (HCC) PATHOLOGY ENTRY LEVEL ELECTRICIAN CYTOLOGY Routine 09/25/2012 12:00 AM CDT from Last 3 Months or Most Recently Relevant to Health Maintenance Results * Pathology ENTRY LEVEL ELECTRICIAN Cytology (09/25/2012 12:00 AM CDT) 09/25/2012 Narrative [facility] - 09/29/2012 12:18 PM CDT [facility] [address] [place] [address] ? Patient Name: CAREN TORIBIO Collected: 09/25/2012 Address: City/State/Zip: [address] [place] [address] ??[id number] Received: Reported: 09/26/2012 09/29/2012 Soc. Sec. #: ?/Age/Sex 1990 (Age: 22) ??F Physician(s): Lalito OBRIEN MD Copy To: ? [facility] ??[id number] [address] [place], ??[place] ??[id number] CYTOPATHOLOGY ENTRY LEVEL ELECTRICIAN REPORT FINAL CYTOLOGIC DIAGNOSIS Pap Smear - ThinPrep: NEGATIVE FOR INTRAEPITHELIAL LESION OR MALIGNANCY REACTIVE/REPARATIVE CHANGES. ENDOCERVICAL CELLS/COMPONENT PRESENT. SATISFACTORY SPECIMEN FOR EVALUATION. ??This specimen required a physician interpretation under CLIA 1987 ?? Electronically Signed Out By [facility]/09/29/2012 DANIEL ROSSI M.D. NANI JULES(ASCP) The [...] George M.D. LAB PAP COPATH ORDER [facility] from Last 3 Months or Most Recently Relevant to Health Maintenance
--- OUTSIDE RECORDS SUMMARY | 2024-06-18 09:47 | XMS_ITS | Clinical Summary ---
Author Organization [facility] Address [address] [address] Phone Care Team Providers Care Oracle Manufacturing Consultant Name Role Phone Unavailable Primary Care Provider Unavailabl e Allergies No known active allergies Medications Medication Sig Dispensed Refills Start Date End Date Status tszbjavn-rclcxnifu-zqvt meth (Maxitrol) 3.5-21178-6.[address] 1 Drop into the right eye four times a day. 5 mL 06/09/2022 Active Social History Tobacco Use Types [...] Last Done Comments Cervical Cancer Screening 1991 Last pap w/ HPV Testing 1991 Last pap w/o HPV Testing 1991 Hepatitis B Vaccine (Standin g Order) (1 of 3 - 19+ 3-dose series) 2010 PERTUSSIS (Standing Order) 2010 TETANUS (Standing Order) 2010 Influenza Vaccine Seasonal (Standing Order) (#1) 2024 HPV Vaccine (Standing Order) Aged Out No longer eligible based on patient's age to complete this topic Pneumococcal/PCV20 Vaccine: Pediatrics (2-5 yrs) and At-Risk Patients (6-64 yrs) (Standing Order) Aged Out No longer eligible b ased on patient's age to complete this topic
--- OUTSIDE RECORDS SUMMARY | 2024-06-18 09:47 | XMS_ITS | Encounter Summary ---
Author Organization [facility] Address [address] [place] [address] Care Team Providers Care Costume Cutter Name Role Phone Unavailable Primary Care Provider Unavailabl e Encounter Details Date Type Department Care Team (Latest Contact Info) Description 04/29/2024 Clinical Communication Division of Gastroenterology in [place], [place] [address] [place] [address] Iqra Rao M.D. Social History Tobacco Use Types Packs/Day Years Used Date Smoking Tobacco: Never Smokeless Tobacco: Never Alcohol Use Standard Drinks/Week Comments Yes 0 (1 standard drink = 0.6 oz pur e alcohol) 2 drinks per week [facility] Utilities Answer Date Recorded In the past 12 months has [employer] electric, gas, oil, or water company threatened [...] often do you attend chur ch or worship services? 1 to 4 times per year [...] care, and heating? Not very hard 12/27/2020 [facility] of Occupat ional Health - Occupational Stress [...] living situation today? I have a [facility] place to live 01/09/2024 Education Answer Date Recorded What is the highest level of school you have completed or the highest degree you have received? Master's degree (e.g., MA, MS, Michaela, MEd, FIREMAN, DESEAN) 01/01/2024 Estimated Date of Delivery Comme [...]
== END 2024-06-18 09:46 | disposition home or self-care (01) ==
LOC: US 09:45
PROVIDERS: Visit Provider Obstetrics & Gynecology
DX: Z34.93 Encounter for supervision of normal pregnancy, unspecified, third trimester (principal); Z3A.37 37 weeks gestation of pregnancy
CPT/HCPCS: 76816; 76819; 87081; 87653

== ENCOUNTER 2024-06-26 07:17 | Outpatient (CLI) | payer BC, SELFPAY ==
--- NOTE | 2024-06-26 07:15 | CRLHL7_ITS ---
For Patients: As a result of the Century Cures Act, medical imaging exams and procedure reports are released immediately into your electronic medical record. You may view this report before your referring provider. If you have questions, please contact your health care provider. INDICATION: chronic chrons disease COMPARISON: 06/18/2024 TECHNIQUE: Real time rouse scale imaging of the fetus was performed. Without non-stress testing. FINDINGS: Sonographic imaging demonstrates a single living intrauterine gestation. Fetus demonstrates a regular cardiac rate of 131 beats per minute. Fetus has a vertex position. The amniotic fluid volume appears normal and there is a single deepest pocket measurement of 5.9 cm. The fetus was active and demonstrated normal breathing movements. There was normal flexion and extension of the trunk and extremities. IMPRESSION: Normal biophysical profile score of 8 out of 8. Dictated by Slim Luo MD @ 06/26/2024 11:02:06 AM (Electronically Signed)
--- OUTSIDE RECORDS SUMMARY | 2024-06-26 07:20 | XMS_ITS | Referral Summary ---
Author Organization [facility] Address [address] [place] [address] Care Team Providers Care Supersonic Engineer Name Role Phone Unavailable Primary Care Provider Unavailabl e Source Comments Patient records contain information from all sites at [facility]. For routine questions regarding patient records, call [phone] during business hours, M-F 8:00 AM - 5:00 PM Central Time. Record requests for emergency care only can be directed to [phone] at any time.[facility] Encounters Date Type Department Care Team Description 04/29/2024 Clinical Communication Division of Gastroenterology in [place], [place] [address] [place] [address] Iqra Rao M.D. from Last 3 Months [...] catheter every 8 (eight) weeks. 09/06/2023 Active rjesqva-Ts-oezv-FA (VINATE ONE) 60 mg iron-1 mg per [...] Date Resolved Date Crohn's Disease 04/14/2012 05/04/2020 Overview (04/23/2017): Crohn's disease Immunizations Name Administration Dates Next [...] pur e alcohol) 2 drinks per week [facility] Utilities Answer Date Recorded In the past 12 months has th e electric, gas, oil, or water company [...] any clubs o r organizations such as adventism groups, unions, fraternal or athletic groups, or [...] care, and heating? Not very hard 12/27/2020 [facility] of Occupat iontx Health - Occupational Stress Questionnaire Answer Date [...] your living situation today? I have a [facility] place to live 01/09/2024 Education Answer Date Recorded What is the highest level of school you have completed or the highest degree you have received? Master's degree (e.g., MA, MS, Michaela, MEd, TRIAL MANAGEMENT ASSOCIATE, DESEAN) 01/01/2024 Estimated Date of Delivery Comme [...] 1:59 PM CDT Colitis Crohn's (HCC) PATHOLOGY SENIOR PAYROLL ADMINISTRATOR CYTOLOGY Routine 09/25/2012 12:00 AM CDT from Last 3 Months or Most Recently Relevant to Health Maintenance Results * Pathology SENIOR PAYROLL ADMINISTRATOR Cytology (09/25/2012 12:00 AM CDT) 09/25/2012 Narrative [facility] - 09/29/2012 12:18 PM CDT [facility] [address] [place] [id number] ? Patient Name: NICOLETTE TORIBIO Collected: 09/25/2012 Address: City/State/Zip: [address] [place] [address] ??[id number] Received: Reported: 09/26/2012 09/29/2012 Soc. Sec. #: ?/Age/Sex 1990 (Age: 22) ??F Physician(s): Lalito OBRIEN MD Copy To: ? [facility] ??[id number] [place], ??[place] ??[address] CYTOPATHOLOGY SENIOR PAYROLL ADMINISTRATOR REPORT FINAL CYTOLOGIC DIAGNOSIS Pap Smear - ThinPrep: NEGATIVE FOR INTRAEPITHELIAL LESION OR MALIGNANCY REACTIVE/REPARATIVE CHANGES. ENDOCERVICAL CELLS/COMPONENT PRESENT. SATISFACTORY SPECIMEN FOR EVALUATION. ??This specimen required a physician interpretation under CLIA 1987 ?? Electronically Signed Out By [facility]/09/29/2012 DANIEL ROSSI M.D. AJ [place] CT(ASCP) The Pap test is a screening procedure [...] George M.D. LAB PAP COPATH ORDER [facility] from Last 3 Months or Most Recently Relevant to Health Maintenance
--- OUTSIDE RECORDS SUMMARY | 2024-06-26 07:20 | XMS_ITS ---
Author Organization [facility] Address [address] [place] [address] Care Team Providers Care Cad Draftsman Name Role Phone Unavailable Unavailable Unavailable Surgery Details Not on file Complications Check Surgery Details section. Procedure Estimated Blood Loss Check Surgery Details section. Procedure Findings Check Surgery Details section. Procedure Specimens Taken Check Surgery Details section.
--- OUTSIDE RECORDS SUMMARY | 2024-06-26 07:20 | XMS_ITS | Encounter Summary ---
Author Organization [facility] Address [address] [place] [address] Care Team Providers Care Translator Deaf Name Role Phone Unavailable Primary Care Provider Unavailabl e Reason for Visit * Reason Onset Date Comments Infliximab/ 02/28/2024 Encounter Details Date Type Department Care Team (Latest Contact Info) Description 02/28/2024 Clinical Communication Division of Gastroenterology in [place], [place] [address] [place] [address] Iqra Rao M.D. Infliximab/pregna ncy Social History Tobacco Use Types Packs/Day Years Used Date Smoking Tobacco: Never Smokeless Tobacco: Never Alcohol Use Standard Drinks/Week Comments Yes 0 (1 standard drink = 0.6 oz pur e alcohol) 2 drinks per week [facility] Utilities Answer Date Recorded In the past 12 months has [employer], gas, oil, or water [employer] threatened to shut off services in your [...] How often do you attend chur or islam services? 1 to 4 times per year 12/27/2020 Do you belong to any clubs o r organizations such as sabianist groups, unions, fraternal or athletic groups, or [...] care, and heating? Not very hard 12/27/2020 [facility] of Occupat ional Health - Occupational Stress [...] your living situation today? I have a [facility] place to live 01/09/2024 Education Answer Date Recorded What is the highest level of school you have completed or the highest degree you have received? Master's degree (e.g., MA, MS, Michaela, MEd, TAPER PRINTED CIRCUIT LAYOUT, DESEAN) 01/01/2024 Estimated Date of Delivery Comme [...]
--- OUTSIDE RECORDS SUMMARY | 2024-06-26 07:20 | XMS_ITS | Clinical Summary ---
Author Organization [employer] [facility] Address [place], [place] [address] Care Team Providers Care Cigar Head Holer Name Role Phone Pcp, No Primary Care [...] Comments Blood Pressure 118/82 10/25/2014 12:05 PM CDC ASSOCIATE Pulse 88 10/25/2014 12:05 PM CDC ASSOCIATE Temperature 37.3 ??C (99.1 ??F) 10/25/2014 12:[address] Respiratory Rate - - Oxygen Saturation - - Inhaled Oxygen Concentration - - Weight 70.8 kg (156 lb) 10/25/2014 12:05 PM CDC ASSOCIATE Height - - Body Mass Index - [...] Procedure Name Priority Date/Time Associated Diagnosis Comments ORTHODONTIST ASSISTANT THIN PREP PAP SCREEN IMAGED Routine 08/04/2020 1:52 PM CDT from Last 3 Months or Most Recently Relevant to Health Maintenance Results * ORTHODONTIST ASSISTANT THIN PREP PAP SCREEN IMAGED (08/04/2020 1:52 PM CDT) Case Report Gynecologic Cytology Report ? Case: [id number] ? Authorizing Provider: ??Kyung Celaya MD ?Collected: ? 08/04/2020 1352 ? Ordering Location: ? [facility] ?Received: ?08/06/2020 1057 ? First Screen: ?Jules Zuluaga ? Rescreen: ?Kamilah Gates ? Specimen: ?ORTHODONTIST ASSISTANT ThinPrep Vial Screening, Cervical/Vaginal ? 08/17/2020 2:11 PM CDT [facility]-C ENTRAL LABORATORY INTERPRETATION/ RESULT NEGATIVE FOR INTRAEPITHELIAL LESION OR MALIGNANCY (NIL) (none) 08/17/2020 2:11 PM CDT [facility] IMEN ADEQUACY Satisfactory for evaluation No endocervical component seen 08/17/2020 2:11 PM CDT [facility] HPV REQUEST HPV and PAP 08/17/2020 2:11 PM CDT [facility] Date of LMP 07/21/2020 08/17/2020 2:11 PM CDT [facility] Additional Information 08/17/2020 2:11 PM CDT [facility] Comment: Interpreted at [facility] [facility] - [address], [place] [address] Automated Review Successful 08/17/2020 2:11 PM CDT [facility] Comment:Specimen processed s uccessfully by automated produce runner device, HN Discounts CorporationPrep Imaging System, [employer] ANCILLARY TESTING ORTHODONTIST ASSISTANT HPV Ordered, Please see separate report 08/17/2020 2:11 PM CDT [facility] Note The pap test is a [...] and malignant lesions. 08/17/2020 2:11 PM CDT [facility] Other (Cervical/Vagina l) 08/04/2020 1:52 PM CDT 08/06/2020 10:57 AM CDT Kyung Celaya MD PATHOLOGY/CYTOLOGY [facility] [address] [place] [address], [place] from Last 3 Months or Most Recently Relevant to Health Maintenance Care Teams Cigar Head Holer Relationship Specialty Start Date End Date Pcp, No . PCP - General 10/25/14
--- OUTSIDE RECORDS SUMMARY | 2024-06-26 07:20 | XMS_ITS | Encounter Summary ---
Author Organization [facility] Address [address] [place] [address] Care Team Providers Care Typesetters Printer Name Role Phone Unavailable Primary Care Provider Unavailabl e Encounter Details Date Type Department Care Team (Latest Contact Info) Description 04/29/2024 Clinical Communication Division of Gastroenterology in [place], [place] [address] [place] [address] Iqra Rao M.D. Social History Tobacco Use Types Packs/Day Years Used Date Smoking Tobacco: Never Smokeless Tobacco: Never Alcohol Use Standard Drinks/Week Comments Yes 0 (1 standard drink = 0.6 oz pur e alcohol) 2 drinks per week [facility] Utilities Answer Date Recorded In the past 12 months has [employer] electric, gas, oil, or water company threatened [...] often do you attend chur ch or sabianist services? 1 to 4 times per year 12/27/2020 Do you belong to any clubs o r organizations such as protestant groups, unions, fraternal or athletic groups, or [...] Master's degree (e.g., MA, MS, Michaela, MEd, WARM IN, DESEAN) 01/01/2024 Estimated Date of Delivery Comme [...]
--- OUTSIDE RECORDS SUMMARY | 2024-06-26 07:20 | XMS_ITS | Clinical Summary ---
Author Organization [facility] Address [address] [address] Phone Care Team Providers Care Wash Rack Operator Name Role Phone Unavailable Primary Care Provider Unavailabl e Allergies No known active allergies Medications Medication Sig Dispensed Refills Start Date End Date Status ernkfltj-qxczltkqq-hbjr meth (Maxitrol) 3.5-38612-7.[address] 1 Drop into the right [...]
--- OUTSIDE RECORDS SUMMARY | 2024-06-26 07:20 | XMS_ITS | Clinical Summary ---
Author Organization [facility] Address [address] [place] [address] Care Team Providers Care Student Services Representative Name Role Phone Unavailable Primary Care Provider Unavailabl e Source Comments Patient records contain information from all sites at [facility]. For routine questions regarding patient records, call [phone] during business hours, M-F 8:00 AM - 5:00 PM Central Time. Record requests for emergency care only can be directed to [phone] at any time.[facility] Allergies Active Allergy Reactions Criticality Noted Date [...] catheter every 8 (eight) weeks. 09/06/2023 Active sxiskbg-Bu-tmkr-FA (VINATE ONE) 60 mg iron-1 mg per [...] Disease 04/14/2012 05/04/2020 Overview (04/23/2017): Crohn's disease Encounters Date Type Department Care Team Description 04/29/2024 Clinical Communication Division of Gastroenterology in [place], [place] [address] [place] [address] Iqra Rao M.D. from Last 3 Months [...] pur e alcohol) 2 drinks per week [facility] Utilities Answer Date Recorded In the past 12 months has [employer], oil, or water [employer] threatened to shut off services in your [...] How often do you attend chur or druze services? 1 to 4 times per year [...] care, and heating? Not very hard 12/27/2020 [facility] of Occupat ional [facility] - Occupational Stress Questionnaire Answer Date Recorded [...] money to buy more. Never true 01/09/20 Within the past 12 months, t he [...] Master's degree (e.g., MA, MS, Michaela, MEd, DOUBLE REAMER OPERATOR, DESEAN) 01/01/2024 Estimated Date of Delivery Comme [...] 1:59 PM CDT Colitis Crohn's (HCC) PATHOLOGY SCHOOL CAFETERIA HEAD COOK CYTOLOGY Routine 09/25/2012 12:00 AM CDT from Last 3 Months or Most Recently Relevant to Health Maintenance Results * Pathology SCHOOL CAFETERIA HEAD COOK Cytology (09/25/2012 12:00 AM CDT) 09/25/2012 Narrative [facility] - 09/29/2012 12:18 PM CDT [facility] [address] [place] [address] ? Patient Name: CAREN TORIBIO Collected: 09/25/2012 Address: City/State/Zip: [address] [place] [address] ??[id number] Received: Reported: 09/26/2012 09/29/2012 Soc. Sec. #: ?/Age/Sex 1990 (Age: 22) ??F Physician(s): Lalito OBRIEN MD Copy To: ? [facility] ??[id number] [address] [place], ??[place] ??[id number] CYTOPATHOLOGY SCHOOL CAFETERIA HEAD COOK REPORT FINAL CYTOLOGIC DIAGNOSIS Pap Smear - ThinPrep: NEGATIVE FOR INTRAEPITHELIAL LESION OR MALIGNANCY REACTIVE/REPARATIVE CHANGES. ENDOCERVICAL CELLS/COMPONENT PRESENT. SATISFACTORY SPECIMEN FOR EVALUATION. ??This specimen required a physician interpretation under CLIA 1987 ?? Electronically Signed Out By [facility]/09/29/2012 DANIEL ROSSI M.D. NANI JULES([facility]) The Pap test is a screening procedure [...]
== END 2024-06-26 07:18 | disposition home or self-care (01) ==
PROVIDERS: Visit Provider Obstetrics & Gynecology
DX: O99.619 Diseases of the digestive system complicating pregnancy, unspecified trimester (principal); K50.90 Crohn's disease, unspecified, without complications
CPT/HCPCS: 76819

== ENCOUNTER 2024-07-02 09:48 | Outpatient (CLI) | payer BC, SELFPAY ==
--- NOTE | 2024-07-02 09:45 | CRLHL7_ITS ---
For Patients: As a result of the Century Cures Act, medical imaging exams and procedure reports are released immediately into your electronic medical record. You may view this report before your referring provider. If you have questions, please contact your health care provider. INDICATION: Chronic Crohn`s disease. COMPARISON: OB ultrasound 06/26/2024. TECHNIQUE: Ultrasound OB pelvis biophysical profile. Real time rouse scale imaging of the fetus was performed without non-stress testing. FINDINGS: Sonographic imaging demonstrates a single living intrauterine gestation. The fetus demonstrates a regular cardiac rate of 149 beats per minute. The fetus has a cephalic orientation. The placenta lies anteriorly. Single deepest pocket measures 4.7 cm (2/2). The fetus was active (2/2). There was normal flexion and extension of the trunk and extremities (2/2). The fetus demonstrated normal breathing movements (2/2). IMPRESSION: Normal biophysical profile score 8 out of 8. Dictated by Tiffani Lewis MD @ 07/03/2024 3:33:58 AM (Electronically Signed)
--- OUTSIDE RECORDS SUMMARY | 2024-07-02 09:50 | XMS_ITS | Encounter Summary ---
Author Organization [facility] Address [address] [place] [address] Care Team Providers Care Senior Applications Analyst Name Role Phone Unavailable Primary Care Provider Unavailabl e Reason for Visit * Reason Onset Date Comments Infliximab/ 02/28/2024 Encounter Details Date Type Department Care Team (Latest Contact Info) Description 02/28/2024 Clinical Communication Division of Gastroenterology in [place], [place] [address] [place] [address] Iqra Rao M.D. Infliximab/pregna ncy Social History Tobacco Use Types Packs/Day Years Used Date Smoking Tobacco: Never Smokeless Tobacco: Never Alcohol Use Standard Drinks/Week Comments Yes 0 (1 standard drink = 0.6 oz pur e alcohol) [address] [facility] Utilities Answer Date Recorded In the past 12 months has [employer], gas, oil, or water [employer] threatened to shut off services in your [...] How often do you attend chur or jain services? 1 to 4 times per year [...] care, and heating? Not very hard 12/27/2020 [facility] of Occupat ional Health - Occupational [...] living situation today? I have a [facility] place to live 01/09/2024 Education Answer Date Recorded What is the highest level of school you have completed or the highest degree you have received? Master's degree (e.g., MA, MS, Michaela, MEd, MANAGER FIELD SALES, DESEAN) 01/01/2024 Estimated Date of Delivery Comme [...]
--- OUTSIDE RECORDS SUMMARY | 2024-07-02 09:50 | XMS_ITS | Clinical Summary ---
Author Organization [facility] Address [place], [place] [address] Care Team Providers Care Clin Asst Name Role Phone Pcp, No Primary Care [...] Comments Blood Pressure 118/82 10/25/2014 12:05 PM CLERK TO JUSTICE Pulse 88 10/25/2014 12:05 PM CLERK TO JUSTICE Temperature 37.3 ??C (99.1 ??F) 10/25/2014 12:[address] Respiratory Rate - - Oxygen Saturation - - Inhaled Oxygen Concentration - - Weight 70.8 kg (156 lb) 10/25/2014 12:05 PM CLERK TO JUSTICE Height - - Body Mass Index - [...] Procedure Name Priority Date/Time Associated Diagnosis Comments MERCHANT SEAMAN THIN PREP PAP SCREEN IMAGED Routine 08/04/2020 1:52 PM CDT from Last 3 Months or Most Recently Relevant to Health Maintenance Results * MERCHANT SEAMAN THIN PREP PAP SCREEN IMAGED (08/04/2020 1:52 PM CDT) Case Report Gynecologic Cytology Report ? Case: [id number] ? Authorizing Provider: ??Kyung Celaya MD ?Collected: ? 08/04/2020 1352 ? Ordering Location: ? [facility] ?Received: ?08/06/2020 1057 ? First Screen: ?Jules Zuluaga ? Rescreen: ?Kamilah Gates ? Specimen: ?MERCHANT SEAMAN ThinPrep Vial Screening, Cervical/Vaginal ? 08/17/2020 2:11 PM CDT [facility] INTERPRETATION/ RESULT NEGATIVE FOR INTRAEPITHELIAL LESION OR MALIGNANCY (NIL) (none) 08/17/2020 2:11 PM CDT [facility] IMEN ADEQUACY Satisfactory for evaluation No endocervical component seen 08/17/2020 2:11 PM CDT [facility] HPV REQUEST HPV and PAP 08/17/2020 2:11 PM CDT [facility] Date of LMP 07/21/2020 08/17/2020 2:11 PM CDT [facility] Additional Information 08/17/2020 2:11 PM CDT [facility] Comment: Interpreted at [facility] [employer] [facility] [address], [place] [address] Automated Review Successful 08/17/2020 2:11 PM CDT [facility] Comment:Specimen processed s uccessfully by automated enterprise application architect device, NeuroVigilPrep Imaging System, [employer] ANCILLARY TESTING MERCHANT SEAMAN HPV Ordered, Please see separate report 08/17/2020 2:11 PM CDT [facility] Note The pap test [...] and malignant lesions. 08/17/2020 2:11 PM CDT [facility] Other (Cervical/Vagina l) 08/04/2020 1:52 PM CDT 08/06/2020 10:57 AM CDT Kyung Celaya MD PATHOLOGY/CYTOLOGY [facility] [address] [place] [address], [place] from Last 3 Months or Most Recently Relevant to Health Maintenance Care Teams Clin Asst Relationship Specialty Start Date End Date Pcp, No . PCP - General 10/25/14
--- OUTSIDE RECORDS SUMMARY | 2024-07-02 09:50 | XMS_ITS | Clinical Summary ---
Author Organization [facility] Address [address] [address] Phone Care Team Providers Care Paint Sprayer Sandblaster Name Role Phone Unavailable Primary Care Provider Unavailabl e Allergies No known active allergies Medications Medication Sig Dispensed Refills Start Date End Date Status aulowmht-dmqfbavbc-zxsm meth (Maxitrol) 3.5-04377-2.[address] 1 Drop into the right [...]
--- OUTSIDE RECORDS SUMMARY | 2024-07-02 09:50 | XMS_ITS | Clinical Summary ---
Author Organization [facility] Address [address] [place] [address] Care Team Providers Care Long Wall Mining Machine Tender Name Role Phone Unavailable Primary Care Provider Unavailabl e Source Comments Patient records contain information from all sites at [facility]. For routine questions regarding patient records, call [phone] during business hours, M-F 8:00 AM - 5:00 PM Central Time. Record requests for emergency care only can be directed to [phone] at any time.[facility] Allergies Active Allergy Reactions Criticality Noted Date [...] catheter every 8 (eight) weeks. 09/06/2023 Active lmgymth-Fx-kryq-FA (VINATE ONE) 60 mg iron-1 mg per [...] 04/29/2024 Clinical Communication Division of Gastroenterology in [place], [place] [address] [place] [address] Iqra Rao M.D. from Last 3 Months [...] pur e alcohol) 2 drinks per week [facility] Utilities Answer Date Recorded In the past 12 months has [employer], oil, or water [employer] threatened to shut off services in your [...] How often do you attend chur or mu-ism services? 1 to 4 times per year 12/27/2020 Do you belong to any clubs o r organizations such as pentecostal groups, unions, fraternal or athletic groups, or [...] care, and heating? Not very hard 12/27/2020 [facility] of Occupat ional [facility] - Occupational Stress Questionnaire Answer Date Recorded [...] Master's degree (e.g., MA, MS, Michaela, MEd, ACTUARIAL MANAGER, DESEAN) 01/01/2024 Estimated Date of Delivery Comme [...] 1:59 PM CDT Colitis Crohn's (HCC) PATHOLOGY DELIVERY OF SHOPPING NEWS CYTOLOGY Routine 09/25/2012 12:00 AM CDT from Last 3 Months or Most Recently Relevant to Health Maintenance Results * Pathology DELIVERY OF SHOPPING NEWS Cytology (09/25/2012 12:00 AM CDT) 09/25/2012 Narrative [facility] - 09/29/2012 12:18 PM CDT [facility] [address] [place] [address] ? Patient Name: CAREN TORIBIO Collected: 09/25/2012 Address: City/State/Zip: [address] [place] [address] ??[id number] Received: Reported: 09/26/2012 09/29/2012 Soc. Sec. #: ?/Age/Sex 1990 (Age: 22) ??F Physician(s): Lalito OBRIEN MD Copy To: ? [facility] ??[id number] [address] [place], ??[place] ??[address] CYTOPATHOLOGY DELIVERY OF SHOPPING NEWS REPORT FINAL CYTOLOGIC DIAGNOSIS Pap Smear - ThinPrep: NEGATIVE FOR INTRAEPITHELIAL LESION OR MALIGNANCY REACTIVE/REPARATIVE CHANGES. ENDOCERVICAL CELLS/COMPONENT PRESENT. SATISFACTORY SPECIMEN FOR EVALUATION. ??This specimen required a physician interpretation under CLIA 1987 ?? Electronically Signed Out By [facility]/09/29/2012 DANIEL ROSSI M.D. NANI JULES([facility]) The Pap test is a screening procedure [...]
--- OUTSIDE RECORDS SUMMARY | 2024-07-02 09:50 | XMS_ITS | Referral Summary ---
Author Organization [facility] Address [address] [place] [address] Care Team Providers Care Practice Physician Name Role Phone Unavailable Primary Care Provider Unavailabl e Source Comments Patient records contain information from all sites at [facility]. For routine questions regarding patient records, call [phone] during business hours, M-F 8:00 AM - 5:00 PM Central Time. Record requests for emergency care only can be directed to [phone] at any time.[facility] Encounters Date Type Department Care Team Description 04/29/2024 Clinical Communication Division of Gastroenterology in [place], [place] [address] [place] [address] Iqra Rao M.D. from Last 3 Months [...] catheter every 8 (eight) weeks. 09/06/2023 Active ywmkrwb-Df-jagq-FA (VINATE ONE) 60 mg iron-1 mg per [...] pur e alcohol) 2 drinks per week [facility] Utilities Answer Date Recorded In [...] often do you attend chur ch or yazidism services? 1 to 4 times per year 12/27/2020 Do you belong to any clubs o r organizations such as yarsanism groups, unions, fraternal or athletic groups, or [...] very hard 12/27/2020 [facility] of [facility]at ionmt Health - Occupational Stress Questionnaire Answer Date [...] living situation today? I have a [facility] place to live 01/09/2024 Education Answer Date Recorded What is the highest level of school you have completed or the highest degree you have received? Master's degree (e.g., MA, MS, Michaela, MEd, ELECTRICIAN REFINERY, DESEAN) 01/01/2024 Estimated Date of Delivery Comme [...] 1:59 PM CDT Colitis Crohn's (HCC) PATHOLOGY AWAKE OVERNIGHT MONITOR CYTOLOGY Routine 09/25/2012 12:00 AM CDT from Last 3 Months or Most Recently Relevant to Health Maintenance Results * Pathology AWAKE OVERNIGHT MONITOR Cytology (09/25/2012 12:00 AM CDT) 09/25/2012 Narrative [facility] - 09/29/2012 12:18 PM CDT [facility] [address] [place] [address] ? Patient Name: NICOLETTE TORIBIO Collected: 09/25/2012 Address: City/State/Zip: [address] [place] [address] ??[id number] Received: Reported: 09/26/2012 09/29/2012 Soc. Sec. #: ?/Age/Sex 1990 (Age: 22) ??F Physician(s): Lalito OBRIEN MD Copy To: ? [facility] ??[id number] [place], ??[place] ??[address] CYTOPATHOLOGY AWAKE OVERNIGHT MONITOR REPORT FINAL CYTOLOGIC DIAGNOSIS Pap Smear - [...] George M.D. LAB PAP COPATH ORDER [facility] from Last 3 Months or Most Recently Relevant to Health Maintenance
--- OUTSIDE RECORDS SUMMARY | 2024-07-02 09:50 | XMS_ITS | Encounter Summary ---
Author Organization [facility] Address [address] [place] [address] Care Team Providers Care Steel Worker Name Role Phone Unavailable Primary Care Provider Unavailabl e Encounter Details Date Type Department Care Team (Latest Contact Info) Description 04/29/2024 Clinical Communication Division of Gastroenterology in [place], [place] [address] [place] [address] Iqra Rao M.D. Social History Tobacco Use Types Packs/Day Years Used Date Smoking Tobacco: Never Smokeless Tobacco: Never Alcohol Use Standard Drinks/Week Comments Yes 0 (1 standard drink = 0.6 oz pur e alcohol) 2 drinks per week [facility] Utilities Answer Date Recorded In the past 12 months has [employer], gas, oil, or water company threatened [...] often do you attend chur ch or yazdanism services? 1 to 4 times per year 12/27/2020 Do you belong to any clubs o r organizations such as sabianism groups, unions, fraternal or athletic groups, or [...] care, and heating? Not very hard 12/27/2020 [facility] of Occupat ional Health - [...] Master's degree (e.g., MA, MS, Michaela, MEd, CHEMISTRY TECHNICAL OFFICER, DESEAN) 01/01/2024 Estimated Date of Delivery Comme [...]
--- OUTSIDE RECORDS SUMMARY | 2024-07-02 09:50 | XMS_ITS ---
Author Organization [facility] Address [address] [place] [address] Care Team Providers Care Pipe Stripper Name Role Phone Unavailable Unavailable Unavailable Surgery Details Not on file Complications Check Surgery Details section. Procedure Estimated Blood Loss Check Surgery Details section. Procedure Findings Check Surgery Details section. Procedure Specimens Taken Check Surgery Details section.
== END 2024-07-02 09:49 | disposition home or self-care (01) ==
LOC: US 09:48
PROVIDERS: Visit Provider Obstetrics & Gynecology
DX: O99.619 Diseases of the digestive system complicating pregnancy, unspecified trimester (principal); K50.90 Crohn's disease, unspecified, without complications
CPT/HCPCS: 76819

== ENCOUNTER 2024-07-10 11:15 | Inpatient (IN) | payer BC, SELFPAY ==
--- OUTSIDE RECORDS SUMMARY | 2024-07-10 11:18 | XMS_ITS | Encounter Summary ---
Author Organization [facility] Address [address] [place] [address] Care Team Providers Care Infant Teacher Name Role Phone Unavailable Primary Care Provider Unavailabl e Encounter Details Date Type Department Care Team (Latest Contact Info) Description 04/29/2024 Clinical Communication Division of Gastroenterology in [place], [place] [address] [place] [address] Iqra Rao M.D. Social History Tobacco Use Types Packs/Day Years Used Date Smoking Tobacco: Never Smokeless Tobacco: Never Alcohol Use Standard Drinks/Week Comments Yes 0 (1 standard drink = 0.6 oz pur e alcohol) 2 drinks per week [facility] Utilities Answer Date Recorded In the past 12 months has [employer] electric, gas, oil, or water company threatened [...] often do you attend chur ch or buddhism services? 1 to 4 times per year 12/27/2020 Do you belong to any clubs o r organizations such as baptism groups, unions, fraternal or athletic groups, or [...] hard 12/27/2020 [facility] of Occupat ional Health - Occupational [...] Master's degree (e.g., MA, MS, Michaela, MEd, MAINTENANCE SPECIALIST, DESEAN) 01/01/2024 Estimated Date of Delivery Comme [...]
--- OUTSIDE RECORDS SUMMARY | 2024-07-10 11:18 | XMS_ITS | Clinical Summary ---
Author Organization [facility] Address [address] [place] [address] Care Team Providers Care Hvac R Tech Name Role Phone Unavailable Primary Care Provider Unavailabl e Source Comments Patient records contain information from all sites at [facility]. For routine questions regarding patient records, call [phone] during business hours, M-F 8:00 AM - 5:00 PM Central Time. Record requests for emergency care only can be directed to [phone] at any time.[facility] Allergies Active Allergy Reactions Criticality [...] catheter every 8 (eight) weeks. 09/06/2023 Active ulfhpuq-Uc-urrp-FA (VINATE ONE) 60 mg iron-1 mg per [...] 04/29/2024 Clinical Communication Division of Gastroenterology in [place], [place] [address] [place] [address] Iqra Rao M.D. from Last 3 Months [...] pur e alcohol) 2 drinks per week [facility] Utilities Answer Date Recorded In the past 12 months has [employer], oil, or water [employer] threatened to shut off services in your [...] How often do you attend chur or zoroastrian services? 1 to 4 times per year 12/27/2020 Do you belong to any clubs o r organizations such as denominational groups, unions, fraternal or athletic groups, or [...] [facility] of Occupat ional [facility] - Occupational Stress Questionnaire Answer Date [...] Master's degree (e.g., MA, MS, Michaela, MEd, STEREOTYPER, DESEAN) 01/01/2024 Estimated Date of Delivery Comme [...] 1:59 PM CDT Colitis Crohn's (HCC) PATHOLOGY TIN RECOVERY WORKER CYTOLOGY Routine 09/25/2012 12:00 AM CDT from Last 3 Months or Most Recently Relevant to Health Maintenance Results * Pathology TIN RECOVERY WORKER Cytology (09/25/2012 12:00 AM CDT) 09/25/2012 Narrative [facility] - 09/29/2012 12:18 PM CDT [facility] [address] [place] [address] ? Patient Name: CAREN TORIBIO Collected: 09/25/2012 Address: City/State/Zip: [address] [place] [address] ??[id number] Received: Reported: 09/26/2012 09/29/2012 Soc. Sec. #: ?/Age/Sex 1990 (Age: 22) ??F Physician(s): Lalito OBRIEN MD Copy To: ? [facility] ??[phone] [place], ??[place] ??[address] CYTOPATHOLOGY TIN RECOVERY WORKER REPORT FINAL CYTOLOGIC DIAGNOSIS Pap Smear - ThinPrep: NEGATIVE FOR INTRAEPITHELIAL LESION OR MALIGNANCY REACTIVE/REPARATIVE CHANGES. ENDOCERVICAL CELLS/COMPONENT PRESENT. SATISFACTORY SPECIMEN FOR EVALUATION. ??This specimen required a physician interpretation under CLIA 1987 ?? [facility]09/29/2012 DANIEL ROSSI M.D. NANI JULES([facility]) The Pap test is a screening [...]
--- OUTSIDE RECORDS SUMMARY | 2024-07-10 11:18 | XMS_ITS ---
Author Organization [facility] Address [address] [place] [address] Care Team Providers Care Stoker Installation Mechanic Name Role Phone Unavailable Unavailable Unavailable Surgery Details Not on file Complications Check Surgery Details section. Procedure Estimated Blood Loss Check Surgery Details section. Procedure Findings Check Surgery Details section. Procedure Specimens Taken Check Surgery Details section.
--- OUTSIDE RECORDS SUMMARY | 2024-07-10 11:18 | XMS_ITS | Clinical Summary ---
Author Organization [employer] [facility] Address [place], [place] [address] Care Team Providers Care Webbing Weaver Name Role Phone Pcp, No Primary Care [...] Comments Blood Pressure 118/82 10/25/2014 12:05 PM VEHICLE FUEL SYSTEMS CONVERTER Pulse 88 10/25/2014 12:05 PM VEHICLE FUEL SYSTEMS CONVERTER Temperature 37.3 ??C (99.1 ??F) 10/25/2014 12:[address] Respiratory Rate - - Oxygen Saturation - - Inhaled Oxygen Concentration - - Weight 70.8 kg (156 lb) 10/25/2014 12:05 PM VEHICLE FUEL SYSTEMS CONVERTER Height - - Body Mass Index - [...] Procedure Name Priority Date/Time Associated Diagnosis Comments TONGSMAN THIN PREP PAP SCREEN IMAGED Routine 08/04/2020 1:52 PM CDT from Last 3 Months or Most Recently Relevant to Health Maintenance Results * TONGSMAN THIN PREP PAP SCREEN IMAGED (08/04/2020 1:52 PM CDT) Case Report Gynecologic Cytology Report ? Case: [id number] ? Authorizing Provider: ??Kyung Celaya MD ?Collected: ? 08/04/2020 1352 ? Ordering Location: ? [facility] ?Received: ?08/06/2020 1057 ? First Screen: ?Jules Zuluaag ? Rescreen: ?Kamilah Gates ? Specimen: ?TONGSMAN ThinPrep Vial Screening, Cervical/Vaginal ? 08/17/2020 2:11 PM CDT [facility] ENTRAL LABORATORY INTERPRETATION/ RESULT NEGATIVE FOR INTRAEPITHELIAL LESION OR MALIGNANCY (NIL) (none) 08/17/2020 2:11 PM CDT [facility] IMEN ADEQUACY Satisfactory for evaluation No endocervical component seen 08/17/2020 2:11 PM CDT [facility] HPV REQUEST HPV and PAP 08/17/2020 2:11 PM CDT [facility] Date of LMP 07/21/2020 08/17/2020 2:11 PM CDT [facility] Additional Information 08/17/2020 2:11 PM CDT [facility] Comment: Interpreted at [facility] - [address], [place] [address] Automated Review Successful 08/17/2020 2:11 PM CDT [facility] Comment:Specimen processed s uccessfully by automated systems programmer device, [employer] Imaging System, [employer] ANCILLARY TESTING TONGSMAN HPV Ordered, Please see separate report 08/17/2020 2:11 PM CDT [facility] Note The pap test [...] and malignant lesions. 08/17/2020 2:11 PM CDT [facility] Other (Cervical/Vagina l) 08/04/2020 1:52 PM CDT 08/06/2020 10:57 AM CDT Kyung Celaya MD PATHOLOGY/CYTOLOGY [facility] [address] [place] [address], [place] from Last 3 Months or Most Recently Relevant to Health Maintenance Care Teams Webbing Weaver Relationship Specialty Start Date End Date Pcp, No . PCP - General 10/25/14
--- OUTSIDE RECORDS SUMMARY | 2024-07-10 11:18 | XMS_ITS | Clinical Summary ---
Author Organization [facility] Address [address] [address] Phone Care Team Providers Care Launch Steward Name Role Phone Unavailable Primary Care Provider Unavailabl e Allergies No known active allergies Medications Medication Sig Dispensed Refills Start Date End Date Status rsizweai-qbtserntg-frpa meth (Maxitrol) [id number] 1 Drop into the right [...]
--- OUTSIDE RECORDS SUMMARY | 2024-07-10 11:18 | XMS_ITS | Referral Summary ---
Author Organization [facility] Address [address] [place] [address] Care Team Providers Care Clinical Laboratory Director Name Role Phone Unavailable Primary Care Provider Unavailabl e Source Comments Patient records contain information from all sites at [facility]. For routine questions regarding patient records, call [phone] during business hours, M-F 8:00 AM - 5:00 PM Central Time. Record requests for emergency care only can be directed to [phone] at any time.[facility] Encounters Date Type Department Care Team Description 04/29/2024 Clinical Communication Division of Gastroenterology in [place], [place] [address] [place] [address] Iqra Rao M.D. from Last 3 Months [...] catheter every 8 (eight) weeks. 09/06/2023 Active dewzklv-Mu-djgl-FA (VINATE ONE) 60 mg iron-1 mg per [...] pur e alcohol) 2 drinks per week [facility] Utilities Answer Date Recorded In the [...] often do you attend chur ch or congregational services? 1 to 4 times per year 12/27/2020 Do you belong to any clubs o r organizations such as episcopal groups, unions, fraternal or athletic groups, or [...] and heating? Not very hard 12/27/2020 [facility] - Occupational Stress Questionnaire Answer Date [...] your living situation today? I have a [facility] place to live 01/09/2024 Education Answer Date Recorded What is the highest level of school you have completed or the highest degree you have received? Master's degree (e.g., MA, MS, Michaela, MEd, STEAM SHOVELMAN, [employer]) 01/01/2024 Estimated Date of Delivery Comme [...] 1:59 PM CDT Colitis Crohn's (HCC) PATHOLOGY LOGISTICS ADMINISTRATOR CYTOLOGY Routine 09/25/2012 12:00 AM CDT from Last 3 Months or Most Recently Relevant to Health Maintenance Results * Pathology LOGISTICS ADMINISTRATOR Cytology (09/25/2012 12:00 AM CDT) 09/25/2012 Narrative [facility] - 09/29/2012 12:18 PM CDT [facility] [address] [place] [id number] ? Patient Name: NICOLETTE TORIBIO Collected: 09/25/2012 Address: City/State/Zip: [address] [place] [address] ??[id number] Received: Reported: 09/26/2012 09/29/2012 Soc. Sec. #: ?/Age/Sex 1990 (Age: 22) ??F Physician(s): Lalito OBRIEN MD Copy To: ? [facility] ??[id number] [address] [place], ??[place] ??[id number] CYTOPATHOLOGY LOGISTICS ADMINISTRATOR REPORT FINAL CYTOLOGIC DIAGNOSIS Pap Smear [...] George M.D. LAB PAP COPATH ORDER [facility] from Last 3 Months or Most Recently Relevant to Health Maintenance
--- OUTSIDE RECORDS SUMMARY | 2024-07-10 11:18 | XMS_ITS | Encounter Summary ---
Author Organization [facility] Address [address] [place] [address] Care Team Providers Care Hvac Controls Technician Name Role Phone Unavailable Primary Care Provider Unavailabl e Reason for Visit * Reason Onset Date Comments Infliximab/ 02/28/2024 Encounter Details Date Type Department Care Team (Latest Contact Info) Description 02/28/2024 Clinical Communication Division of Gastroenterology in [place], [place] [address] [place] [address] Iqra Rao M.D. Infliximab/pregna ncy Social History Tobacco Use Types Packs/Day Years Used Date Smoking Tobacco: Never Smokeless Tobacco: Never Alcohol Use Standard Drinks/Week Comments Yes 0 (1 standard drink = 0.6 oz pur e alcohol) 2 drinks per week [facility] Utilities Answer Date Recorded In the past 12 months has [employer], gas, oil, or water [employer] threatened to shut off services in your [...] How often do you attend chur or hinduism services? 1 to 4 times per year 12/27/2020 Do you belong to any clubs o r organizations such as yazidism groups, unions, fraternal or athletic groups, or [...] care, and heating? Not very hard 12/27/2020 [facility] ional Health - Occupational [...] living situation today? I have a [facility] place to live 01/09/2024 Education Answer Date Recorded What is the highest level of school you have completed or the highest degree you have received? Master's degree (e.g., MA, MS, Michaela, MEd, SENIOR MICROSOFT CONSULTANT, DESEAN) 01/01/2024 Estimated Date of Delivery Comme [...]
[2024-07-10 12:01] VITALS: BMI 28.5
[2024-07-10 12:10] VITALS: BP 138/90; PULSE 86; TEMP 36.5
[2024-07-10 12:12] VITALS: PULSE 82; O2SAT 98
[2024-07-10 12:26] VITALS: BP 132/79; PULSE 76
[2024-07-10] MEDS: miSOPROStoL 25 MCG/0.25 TABLET VAGINAL ×2 (12:29→15:53)
--- NOTE | 2024-07-10 12:36 | P.LDBA_ITS ---
Subjective History of Present Illness Date Seen: 07/10/24 Narrative: Patient is being admitted to Labor and Delivery for induction of labor. She is a 33 year old -0-1-0 woman at 39 weeks, 1 day gestation. She has had persistently decreased movement for the last 3 days, and notable change from previous sensations. BPP was 8/8 today. monitoring reveals a baseline of 115, moderate variability, accelerations present, with 2 brief variable decelerations in the last hour. Her full history and physical was dictated by Dr. Whiting on 06/26/2024. Please see this for details. Specific Issues/Plans Spouse: Thanh. Baby: [] #Crohn's disease, on Remicade. Reports remission for the past 2 years * [facility] is managing, upcoming appointment: * [facility] referral completed 01/13 [x] level 2 US @ [facility] on 02/23 - unremarkable, EFW 311 @ 56%ile [x] Low risk NIPT [ ] continue infliximab q8w through , ideally last infusion >=8 weeks prior to delivery (continue PP) [ ] growth US and 28 weeks and 36 weeks (ordered) - more frequent if active dz or inadequate weight gain - 28 week: EFW 1430g, 89%ile. MVP 6.7cm. Breech. [ ] weekly BPP starting 36 weeks (form completed) [ ] Mode/timing of delivery per routine indications, not past 41w0d # Intramural for fibroid, 2.5 cm # Pap 08/04/2020: NIL, +HPV. Repeat Pap not performed until 1st OB * 12/10/23 Pap: NIL, -HPV TDAP: 05/11/24 34wk hgb: 11.8 GBS 36wks: H&P: By Dr. Whiting on 06/26/24 Imagin04/24/24: Breech, SDP 6.7cm. EFW: 14 30 g, 3 lb 2 oz, 89%. BPD 83%, HC 65%, AC 91%, FL 60%. 06/18/2024: Vtx, BPP 8/8, SDP 6.0 cm. EFW 2991 g, 6 lb 10 oz, 69%. BPD 87%, HC 77%, AC 72%, FL 48%. 07/02/24: Vertex, BPP 8/8, SDP: 4.7cm OB - Problem Based A/P Additional Plan (1) Crohn's disease: Problem details: Followed at [facility]. Diagnosed 12/2011. Status: Chronic (2) Decreased movement: Status: Acute Plan IOL for persistently decreased movement with reassuring testing. Unfavorable cervix. Will begin with two doses of vaginal misoprostol, then reassess for ability to place Cook catheter. monitoring per misoprostol protocol. GBS negative. Delivery/Labor/Induction Plan Induction method: per misoprostol protocol OB Exam Physical Exam Vital signs: Temp Pulse BP Pulse Ox 97.7 F 76 132/79 98 07/10/24 12:10 07/10/24 12:26 07/10/24 12:26 07/10/24 12:12 Narrative: Physical exam: General: No acute distress Psych: Alert and oriented x3, full affect HEENT: Normocephalic, atraumatic Heart: Regular rate and rhythm, no murmur rub or gallop Lungs: Clear to auscultation bilaterally Abdomen: Soft, nontender, gravid, cephalic lie, EFW 7 lb by Poli Lower extremities: No edema or erythema Pelvic exam: Per Dr. Garcia, cervix is closed and long
[2024-07-10 15:28] VITALS: BP 138/70; PULSE 85; TEMP 36.5
--- NOTE | 2024-07-10 18:37 | P.OBPN_ITS ---
Subjective Time Seen by Provider: 18:30 Date Seen: 07/10/24 Narrative: Caren is a 33-year-old G 1p 0 woman at 39 weeks, 1 day gestation here for induction of labor for persistently decreased movement. She had an unfavorable cervix at presentation, and has thus far received 2 doses of vaginal Cytotec. She is feeling some minor cramping. Of note, she has had 1 blood pressure with a diastolic of 90. She has had several systolic blood pressures in the 130s. Objective Exam: General: Pleasant, no acute distress Cervical exam: 1 cm, long, high, posterior, moderate consistency Vital Signs: Last Vital Signs Temp 97.7 F 07/10/24 15:28 Pulse 85 07/10/24 15:28 BP 138/70 07/10/24 15:28 Pulse Ox 98 07/10/24 12:12 Contractions Contraction Frequency: Every 2 minutes Contraction pattern: Regular Assessment Assessment: induction ongoing Status: Category l Tracing Comments: Baseline 120, accelerations present, no decelerations, moderate variability. Contractions every 2 minutes. GBS negative. Labor Progress: Cervix still unfavorable after 2 doses of vaginal Cytotec. Maternal Status: Reassuring Plan Plan: Using aseptic technique, Cook catheter placed. Intrauterine balloon inflated with 60 mL of saline, and intravaginal balloon with 40 mL. Inflation of the vaginal balloon was limited by patient intolerance. If she struggles with too m uch pain, I would next favor removal of 20 mL from the intrauterine balloon. Otherwise, I would like to start low-dose Pitocin at 9:00 p.m.. She may use morphine and Vistaril as needed for pain overnight. We will plan to remove the Cook catheter 0630 a.m.. If she has any more of normal blood pressures, I will obtain HELLP labs.
[2024-07-10 18:46] VITALS: BP 138/87; PULSE 63; TEMP 36.4
[2024-07-10 19:28] LABS: Basophils Percent Auto 0.3 % (0.0-3.0); Eosinophils Percent Auto 0.3 % (0.0-7.0); Hematocrit 38.2 % (33.0-51.0); Hemoglobin* 12.3 gm/dL (12.0-16.0); Immature Granulocytes Pct Auto 0.2 %; Mean Corpuscular HGB Conc 32 gm/dL (32-36); Mean Corpuscular Hemoglobin 27 pg (26-34); Mean Corpuscular Volume 83 fL (80-100); Monocytes Percent Auto 8.1 % (0.0-11.0); Neutrophils Percent Auto 62.1 % (42.0-72.0); Platelet Count* 232 K/uL (140-440); RDW Coefficient of Variation % 13.4 % (11.5-15.5); Red Blood Count 4.61 m/uL (4.00-5.20); White Blood Count* 12.17 K/uL (4.50-11.00)
[2024-07-10 19:48] LABS: Alanine Aminotransferase* 11 U/L (4-35); Aspartate Amino Transferase* 25 U/L (12-35); Blood Urea Nitrogen* 9 mg/dL (5-24); Creatinine* 0.7 mg/dL (0.5-1.5); Estimated Glomerular Filt Rate 118 ml/min; Uric Acid* 5.1 mg/dL (2.2-8.4)
[2024-07-10 19:57] LABS: Slide Review Reflex No
[2024-07-10] MEDS: hydrOXYzine pamoate 25 MG CAPSULE 100 MG PO (20:22)
[2024-07-10] MEDS: MORPHINE 10 MG/ML inj IM (20:23)
[2024-07-10 20:26] VITALS: BP 134/77; PULSE 72
[2024-07-11] VITALS (48 sets, daily range): BP systolic 114–146; BP diastolic 57–89; PULSE 73–187; RESP 16–20; TEMP 36.4–36.6; O2SAT 95–99
[2024-07-11] MEDS: OXYTOCIN 30 unit/500 ML in NS 30 UNIT/500 ML BAG IVPB (05:44)
[2024-07-11] MEDS: LACTATED RINGERS 1000 ML 1,000 ML 125 ML IV ×3 (05:44→22:25)
--- NOTE | 2024-07-11 12:28 | P.OBPN_ITS ---
Subjective Time Seen by Provider: 12:28 Date Seen: 07/11/24 Narrative: A bit worried about labor progress Objective Vital Signs: Last Vital Signs Temp 97.6 F 07/11/24 12:20 Pulse 88 07/11/24 12:19 Resp 16 07/11/24 12:20 BP 144/89 H 07/11/24 12:19 Pulse Ox 97 07/11/24 12:20 Pelvic Exam Dilation (cm): 5 Effacement (%): 80 Station: -2 Contractions Monitor mode: External Contraction pattern: Regular Contraction intensity: Moderate Pitocin Rate (mU/min): 6 Assessment Assessment: induction ongoing Station: -2 Status: Category l Heart Rate Baseline: 130 Intermediate Variability: Moderate (6-25) Monitor Accelerations: Present Monitor Decelerations: Variable (Sporadic) Labor Progress: Normal Maternal Status: Stable, 2 mildly elevated blood pressures, not 4 hours apart, will monitor closely. Plan Plan: Continue IV Oxytocin titration, moving around. Will re check cervix in 3 hours and will AROM then. Patient plans to get epidural and would like to continue moving as long as she can do so. NST reassuring, maternal status as well. Continue current management.
--- NOTE | 2024-07-11 20:38 | PM.OBPNL ---
Subjective Date Seen: 07/11/24 Narrative: In pain, tired. Objective Vital Signs: Last Vital Signs Temp 97.6 F 07/11/24 18:00 Pulse 98 07/11/24 18:00 Resp 16 07/11/24 18:00 BP 123/73 07/11/24 18:00 Pulse Ox 96 07/11/24 18:00 Pelvic Exam Dilation (cm): 9 Effacement (%): 90 Station: 0 Contractions Monitor mode: External Contraction pattern: Regular Contraction intensity: Strong/Firm Pitocin Rate (mU/min): 7 Assessment Assessment: induction ongoing Station: 0 Amniotic Membrane Status: AROM Status: Category ll Heart Rate Baseline: 135 Assisted Variability: Moderate (6-25) Monitor Accelerations: Present Monitor Decelerations: Variable (Sporadic) Maternal Status: Stable, but tired. Plan Plan: Patient requesting epidural. AROM at around 7pm, currently 9cm and 90% effaced, 0 station. Will re evaluate cervix in 2 hours. Continue current management.
[2024-07-11] MEDS: ROPIVACAINE 0.2% 100 ml 100 ML 12 MG EPIDURAL (21:19)
[2024-07-11] MEDS: LIDOCAINE 2% (PF) 5 ML VIAL EPIDURAL (21:19)
--- NOTE | 2024-07-11 21:25 | PM.ANBPRC ---
[facility] Medical History History of abnormal cervical Pap smear ?Z87.42 - Personal history of other diseases of the female genital tract (ICD-10) Crohn's disease ?K50.90 - Crohn's disease, unspecified, without complications (ICD-10) Surgical History History of open reduction and internal fixation (ORIF) procedure (2005) ?Z98.890 - Other specified postprocedural states (ICD-10) History of mandibular surgery (07/18/08) ?Z98.890 - Other specified postprocedural states (ICD-10) Family History Paternal Grandfather Colon cancer Prostate cancer Stroke Maternal Grandmother Breast cancer Diabetes Paternal Grandmother Diabetes Stroke Maternal Grandfather Heart disease High blood pressure Father High cholesterol Sister High blood pressure Social History 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 Has Master's degree. Methodist/cultural needs: no. Chemical or radiation exposure: no. Pre- tobacco use: no. Pre- alcohol use: 3 per. Current tobacco use: no. Current alcohol use: no. Recreational drug use: no. Dietary restrictions: no. Blood transfusion acceptable in an emergency: yes. PSYCHOSOCIAL HISTORY: History of depression or currently depressed: no. Curren or past physical, emotional, or sexual mistreatment: no. Problems that will make it hard to make it to appointments: no. What is your current living situation?: I presently have a place to live Problems where you live: no known problems In the past 12 months, utilities in danger of being shut off: no In past 12 months, lack of transportation kept you from medical appts, meetings, work, or getting things needed for daily living: no In the past 12 mos, have been you worried that your food would run out before you had money to buy more?: never true In the past 12 mos, the food you bought just didn't last and you didn't have money to buy more?: never true Smoking Status: Never smoker Do you use any of these nicotine containing products: None How often do you have a drink containing alcohol: never AUDIT-C Alcohol total score: 0 Non-prescribed substance use: denies use How often does anyone, including family, friends and others, physically hurt you: never How often does anyone, including family, friends and others, insult or talk down to you: never How often does anyone, including family, friends and others, threaten you with harm: never How often does anyone, including family, friends and others, scream or curse at you: never Little interest or pleasure in doing things: not at all Feeling down, depressed, or hopeless: not at all Meds Home Medications and Allergies Home Medications ?Medication ?Instructions ?Recorded ?Confirmed ?Type docosahexaenoic acid 200 mg mg PO 12/10/23 07/10/24 History capsule ( DHA) aspirin 81 mg tablet,delayed 81 mg PO QDAY 02/07/24 07/10/24 History release (Adult Low Dose Aspirin) infliximab 100 mg intravenous IV Q8W 07/10/24 History solution (Remicade) Allergies Allergy/AdvReac Type Severity Reaction Status Date / Time No Known Drug Allergies Allergy Verified 07/10/24 09:46 Results Labs Labs: Laboratory Results - last 24 hr 07/10/24 19:20 Blood Type A Positive Antibody Screen NEGATIVE Vital Signs Vital Signs: Last Vital Signs Temp 97.6 F 07/11/24 18:00 Pulse 103 H 07/11/24 21:24 Resp 16 07/11/24 18:00 BP 131/62 07/11/24 21:24 Pulse Ox 96 07/11/24 18:00 Weight: 82.599 kg Height: 170.18 cm Anesthesia Procedures Epidural Insertion Patient Location: OB Start Time: 21:00 Stop Time: 21:45 Start Date: 07/11/24 Stop Date: 07/11/24 Reason for Block: primary anesthetic Patient Position: sitting Performed By: Dharmesh Kelley Preanesthetic Checklist: IV checked, risks and benefits discussed, surgical consent, monitors and equipment checked, pre-op evaluation, timeout performed and anesthesia consent Prep: chlorhexidine gluconate Monitoring: blood pressure monitoring, instrumentation technician, continuous pulse oximetry and heart rate Approach: midline Vertebral Space: lumbar (1-5) Needle Type: Tuohy needle Injection Technique: continuous catheter (catheter) Needle gauge: 17 Needle Length (cm): 10 cm Needle Insertion Depth (cm): 5 Catheter Gauge: 19 Catheter Type: multi-orifice Catheter at skin depth (cm): 10 Test Dose Result: negative and lidocaine 1.5% with epinephrine 1 to 200,000
[2024-07-12] VITALS (18 sets, daily range): BP systolic 118–133; BP diastolic 55–86; PULSE 72–105; RESP 16; TEMP 36.7–36.9; O2SAT 97–98
--- NOTE | 2024-07-12 00:25 | W.PM.VAGDE_ITS ---
OB Procedure Vag Delivery Mother Details Mother Details: The patient is a 33 year-old, 2, Para 1, admitted on 07/10/24 at 39 1/7 Days gestation for IOL due to Chron's dx and decreased movements. IOL started with Cytotec, Cook catheter. This morning patient was started on IV Oxytocin and continued to progress normally, AROM completed at around 7pm, progressed well until 9cm, at this point she remained at 9cm and evaluation of the cervix showed a stretchy cervix and this was attempted to be reduced with maternal pushing for about 20-30 minutes. After this time, a break from pushing was attempted and we proceeded with position changes. Upon reevaluation she was found complete and with good maternal pushing efforts. Patient has had mildly elevated blood pressures intra that have been 4 hours apart. This would be consistent with GHTN diagnosis. Will plan to repeat HELLP labs in am. : 2 Para: 1 Weeks Gestation: 39.2 Admission Date: 07/10/24 Additional Details Amniotic Membrane Status: AROM Amniotic Membrane Rupture Date: 07/11/24 Amniotic Membrane Rupture Time: 19:10 Amniotic Membrane Fluid Description: Clear Analgesia/Anesthesia Type: Epidural and Nitrous Oxide Waterbirth: No Pitcoin: Yes Intrapartal Events: Labor Induction Induction Method: Intracervical balloon catheter, per misoprostol protocol, per pitocin protocol and AROM Labor Onset: 15:07 Complete: 23:04 Pushin:02 Heart: heart tones during second stage were category 2. Variable decelerations during contractions and pushing. Delivery Details Delivery Date: 07/11/24 Delivery Time: 23:56 Route of delivery: Infant Gender: Female Position at Delivery: OA Delivery Details: Delivered over intact perineum via spontaneous vaginal delivery. was placed on maternal abdomen.? Cord was clamped and cut after a 30-60 second del ay. Nose and mouth were bulb suctioned.? weight pending. 1 Minute Interval Total Score: 9 5 Minute Interval Total Score: 9 Additional Details Shoulder Dystocia: No Placenta Delivery Time: 00:04 Placental Delivery Description: Spontaneous Delivery repair: Vicryl Procedure Done: Global Blood Loss: 300 Laceration: Perineal - 2nd Degree (And bilateral periurethral bleeding and repaired) Episiotomy Description: None Blood Loss Measurement Type: QBL Bakri Used: No Sponge/Need Count Correct: Yes Cord Vessel Description: 3 Vessels Event Summary Status: Mother and infant were stable after delivery. Disposition: floor
[2024-07-12 06:44] LABS: Hematocrit 34.9 % (33.0-51.0); Hemoglobin* 11.4 gm/dL (12.0-16.0); Mean Corpuscular HGB Conc 33 gm/dL (32-36); Mean Corpuscular Hemoglobin 27 pg (26-34); Mean Corpuscular Volume 83 fL (80-100); Platelet Count* 195 K/uL (140-440); Red Blood Count 4.21 m/uL (4.00-5.20); White Blood Count* 20.25 K/uL (4.50-11.00)
[2024-07-12 06:48] LABS: Slide Review Reflex No
[2024-07-12 07:03] LABS: Aspartate Amino Transferase* 34 U/L (12-35); Creatinine* 0.6 mg/dL (0.5-1.5); Estimated Glomerular Filt Rate 122 ml/min
[2024-07-12 07:04] LABS: Alanine Aminotransferase* 11 U/L (4-35); Blood Urea Nitrogen* 8 mg/dL (5-24)
[2024-07-12] MEDS: DOCUSATE SODIUM 100 MG CAPSULE PO (09:31)
[2024-07-12] MEDS: ACETAMINOPHEN 500 MG TABLET 1000 MG PO ×2 (09:31→16:13)
--- NOTE | 2024-07-12 10:07 | PM.OBPNVD1 ---
OB - PN:Subj Subjective Date Seen: 07/12/24 Narrative: Caren is a 33 y.o. who was admitted to L & D for IOL. ?She had an uncomplicated .?The patient feels well. ?The pain is well controlled with current medications. ?She has no new complaints. She is expressing breast milk and working on latch. the patient has done well.? Vitals have been stable.?We diagnosed GHTN yesterday and repeated HELLP labs this morning which were found all normal. She has remained afebrile.? Has a good appetite, is tolerating a general diet. ?She is voiding without difficulty.? She is ambulating and denies any dizziness.? Has Small amount of rubra lochia. ? OB - PN: Obj Exam Physical Exam: Vital signs: Temp Pulse Resp BP Pulse Ox O2 Del Method 98.0 F 90 16 120/77 97 Room Air 07/12/24 09:02 07/12/24 09:02 07/12/24 09:02 07/12/24 09:02 07/12/24 06:13 07/12/24 06:13 Narrative: VITAL SIGNS: As noted above. GENERAL APPEARANCE: Alert, cooperative female in no acute distress. MOOD & AFFECT: Normal. ABDOMEN: Soft, non-distended and nontender. Uterus well contracted, non tender. : Normal pp lochia. EXTREMITIES: Nonedematous. Well perfused. Nontender. OB - PN: Obj Data Labs Labs: Laboratory Results - last 24 hr 07/12/24 06:33 WBC 20.25 H RBC 4.21 Hgb 11.4 L Hct 34.9 MCV 83 MCH 27 MCHC 33 Plt Count 195 BUN 8 Creatinine 0.6 Estimated Creat Clear 130.90 Estimated GFR 122 AST 34 ALT 11 OB - PN: A/P Delivery Assessment and Plan (1) Vaginal delivery: Status: Acute (2) Gestational hypertension: Status: Acute Assessment and Plan: Continue to monitor BPs, will only repeat labs if there are concerns for severe features. (3) Crohn's disease: Problem details: Followed at [facility]. Diagnosed 12/2011. Status: Chronic Plan Plan: routine care
--- NOTE | 2024-07-12 13:25 | PM.ANPOST ---
Post Anesthesia Note Post Anesthesia Note Patient seen: Inpatient Respiratory Status: adequate Cardiovascular Status: adequate Mental Status: baseline Pain: adequate Temp: baseline Anesthetic awareness: N/A Complications: none Follow care: none
[2024-07-12 18:36] LABS: Rapid Plasma Reagin (RPR) Non Reactive (Non Reactive)
[2024-07-13 02:45] VITALS: BP 122/70; PULSE 63; RESP 16; TEMP 36.7; O2SAT 98
[2024-07-13 06:44] LABS: Hemoglobin* 11.3 gm/dL (12.0-16.0)
[2024-07-13 07:59] VITALS: BP 126/86; PULSE 68; RESP 16; TEMP 36.6
[2024-07-13] MEDS: DOCUSATE SODIUM 100 MG CAPSULE PO (08:52)
[2024-07-13] MEDS: ACETAMINOPHEN 500 MG TABLET 1000 MG PO (08:52)
--- NOTE | 2024-07-13 08:56 | P.DS_ITS ---
DS: Providers Provider Date Seen: 08/05/24 Date of admission: 07/10/24 11:15 Primary care physician: Not a Local Provider Admitting Clinician: Mandy Pate MD Attending Physician on discharge: Mita Brown CNM DS: Diagnosis Discharge Diagnosis (1) care and examination immediately after delivery: Status: Acute (2) Gestational hypertension: Status: Acute (3) Lactating mother: Status: Acute (4) Crohn's disease: Status: Chronic Problem details: Followed at [facility]. Diagnosed 12/2011. Exam Narrative: Exam Narrative: GENERAL APPEARANCE:? normal affect, alert, no distress MOOD:? appropriate CHEST:? clear to auscultation HEART:? regular rate and rhythm ABDOMEN:? soft, non-tender the uterine fundus is at Umbilicus, Midline and is appropriate for the stage of recovery. PERINEUM:? mild edema of the perineum, there is a Perineal Laceration,?2nd degree, that is healing well. EXTREMITIES:? normal and no edema Const: Vital Signs, click to edit/add: Vital Signs - 24 hr 07/12/24 09:02 07/12/24 13:46 07/12/24 17:45 Temperature 98.0 F 98.2 F 98.1 F Pulse Rate [Pulse Oximeter] 90 90 90 Respiratory Rate 16 16 16 Blood Pressure [Ri ght Arm] 120/77 131/84 127/80 Pulse Oximetry Oxygen Delivery Me thod 07/12/24 21:29 07/13/24 02:45 07/13/24 07:59 Temperature 98.0 F 97.9 F Pulse Rate [Pulse Oximeter] 72 63 68 Respiratory Rate 16 16 16 Blood Pressure [Ri ght Arm] 119/77 122/70 126/86 Pulse Oximetry 98 98 Oxygen Delivery Me thod Room Air Room Air Room Air Documenting provider has reviewed patient's vital signs: yes OB - DS: Summary Hospital Course Hospital Course: Caren is a 33 y.o. G 2 P 1011 who was admitted to [facility] for induction of labor for Crohns disease. ?She had a NVD that was uncomplicated. The patient feels well. ?The pain is well controlled with current medications. ?She has no new complaints. ?She is breast feeding and reports things are going well. the patient has done well.? Vitals have been stable.? She has remained afebrile.? Has a good appetite, is tolerating a general diet. ?She is voiding without difficulty.? She is passing gas and has not had a bowel movement.? She is ambulating and denies any dizziness.? Has small amount of rubra lochia. She was diagnosed with GHTN during labor. Problems: plan: Discharge home with baby. Follow up in 2 weeks and 6 weeks. , may see if needed Hgb 11.3. GHTN diagnosed by elevated BP greater than 4 hours apart Labs WNL Discharge home with BP cuff if does not already have one Follow up in 3-5 days Call for signs/symptoms of preeclampsia Peripartum Data delivery method: Vaginal Laceration description: Perineal - 2nd Degree complications: none Infant Gender: Female Infant Discharge Plan: Home Status at Discharge Functional status at discharge: independent ambulation Overall status at discharge: patient is progressing back to baseline Time Spent with Patient Time attestation: Total time spent providing and/or coordinating discharge services: Time spent: Less than 30 minutes Discharge Plan Discharge Disposition: Home, Self-Care Date of Admission: 07/10/24 11:15 Primary Care Provider: Provider,Not a Local Condition: Stable Anticipated Discharge Date/Time: 07/13/24 12:00 Discharge Medications: New docusate sodium 100 mg Capsule 100 mg PO DAILY Qty: 90 0RF ibuprofen 600 mg Tablet 600 mg PO Q6H PRNQty: 60 0RF acetaminophen 500 mg Tablet 1,000 mg PO Q6H PRNQty: 0 0RF Continued DHA 200 mg capsule PO infliximab [Remicade] 100 mg recon soln IV Q8W Discontinued aspirin [Adult Low Dose Aspirin] 81 mg tablet,delayed release (DR/EC) 81 mg PO QDAY Discharge Orders: Discharge Order (Routine); Ordered 07/13/24 Ordered By: Mita Brown Patient Education: OB Over the Counter Medication Information, OB Vaginal/Breast Feeding Additional Instructions: Discharge instructions were reviewed with the patient including signs and symptoms of infection and home going medications Nothing vaginally for 6 weeks: no tampons or intercourse Off Work or School for 6 weeks Follow Up [facility] for a BP check?in 3-5 days Call with BP greater than or equal to 160/110 or sustained of 140/90's * Severe headache that doesn't improve after taking medications * Changes in vision, including temporary loss of vision, blurred vision, and/or light sensitivity * Upper abdominal pain (usually under ribs on the right side) 2-week visit: discuss infant feeding concerns, review control options and screen for anxiety/depression. 6-week visit for an annual exam. consultation services are available to all mothers and babies for the first year after delivery.? To make an appointment, please call [phone]. Activity Level: Activity as Tolerated Discharge Diet: Regular Follow Up Appointments: [facility] [Provider Group] Forms: [place] Info Instructions
== END 2024-07-13 12:02 | disposition home or self-care (01) | DRG 560 ==
PROVIDERS: Obstetrics & Gynecology; Admitting Provider Obstetrics & Gynecology; Visit Provider Obstetrics & Gynecology
DX: O70.1 Second degree perineal laceration during delivery (principal); O71.82 Other specified trauma to perineum and vulva; O99.62 Diseases of the digestive system complicating childbirth; K50.90 Crohn's disease, unspecified, without complications; O13.4 Gestational [pregnancy-induced] hypertension without significant proteinuria, complicating childbirth; Z3A.39 39 weeks gestation of pregnancy; Z37.0 Single live birth; O34.13 Maternal care for benign tumor of corpus uteri, third trimester; D25.1 Intramural leiomyoma of uterus
CPT/HCPCS: 01967; 36415; 59200; 76819; 82565; 82570; 84156; 84450; 84460; 84520; 84550; 85018; 85025; 85027; 86592; 86850; 86900; 86901; A9270; C1726; J2270; J2371; J2795; J7120

== ENCOUNTER 2025-07-06 16:51 | Outpatient (CLI) | payer BC, SELFPAY ==
[2025-07-06 22:55] LABS: Bacterial Vaginosis* Negative (Negative); Candida glab/krus NOT DETECTED (No Detected)
== END 2025-07-06 16:52 | disposition home or self-care (01) ==
LOC: NFLDREF 16:51
PROVIDERS: Visit Provider Midwife
DX: N89.8 Other specified noninflammatory disorders of vagina (principal)
CPT/HCPCS: 81513; 87481; 87661